=== PATIENT | female | born 1970 | race Caucasian/White ===

== ENCOUNTER 2020-06-05 10:24 | Outpatient (REF) | payer OTHER, SELFPAY ==
--- NOTE | 2020-06-05 10:39 | ECG_ITS ---
Test Reason : SCREENING Blood Pressure : / mmHG Vent. Rate : 059 BPM Atrial Rate : 059 BPM P-R Int : 142 ms QRS Dur : 084 ms QT Int : 440 ms P-R-T Axes : 009 021 026 degrees QTc Int : 435 ms Sinus bradycardia Otherwise normal ECG When compared with ECG of 03-DEC-2015 08:28, No significant change was found Referred By: Burak Daigle Electronically Signed By:PRISCA MERCADO
[2020-06-05 11:00] LABS: MANUAL DIFF FLAG NO
[2020-06-05 11:36] LABS: Basophils Percent Auto 0.5 % (0-2); Eosinophils Absolute Auto 0.2 X10*3/uL (0.0-0.4); Eosinophils Percent Auto 3.4 % (0-4); Hematocrit 43.9 % (37-47); Hemoglobin 14.1 g/dl (12.0-16.0); Imm Gran Abs Auto 0.01 X10*3/uL (0.00-0.03); Imm Gran Pct Auto 0.2 % (0.0-0.4); Lymphocytes Percent Auto 34.5 % (20-40); Mean Corpuscular HGB Conc 32.1 g/dl (31.0-35.0); Mean Corpuscular Volume 87.3 fL (80-98); Mean Platelet Volume 10.4 fL (9.4-12.3); Monocytes Absolute Auto 0.4 X10*3/uL (0.1-1.2); Monocytes Percent Auto 7.8 % (2-11); Neutrophils Percent Auto 53.6 % (45-73); Platelet Count 291 X10*3/uL (160-400); Red Blood Count 5.03 X10*6/uL (4.20-5.50); White Blood Count 5.7 X10*3/uL (4.8-10.8)
[2020-06-05 11:49] LABS: Alanine Aminotransferase 32 U/L (0-31); Albumin Level 4.3 g/dL (3.5-5.0); Alkaline Phosphatase 59 U/L (39-117); Anion Gap 13 (12-20); Aspartate Amino Transferase 21 U/L (5-31); Bilirubin Total 0.6 mg/dL (0.0-1.0); Blood Urea Nitrogen 10 mg/dL (9-16); Calcium 8.9 mg/dL (8.4-10.2); Carbon Dioxide 25 mmol/L (22-29); Chloride 105 mmol/L (96-108); Cholesterol 206 mg/dL; Estimated Glomerular Filt Rate > 60; Glucose Fasting 85 mg/dL (60-99); HDL Cholesterol 49 mg/dL; LDL Cholesterol Calculated 121 mg/dl; Potassium 4.6 mmol/L (3.3-5.1); Sodium 138 mmol/L (135-145); Total Protein 6.9 g/dL (6.5-8.0); Triglycerides 182 mg/dL
[2020-06-05 12:01] LABS: Thyroid Stimulating Hormone 1.27 uIU/mL (0.32-4.0)
== END 2020-06-05 10:25 | disposition home or self-care (01) ==
LOC: HO.LAB 10:24
PROVIDERS: PCP Internal Medicine; Visit Provider Internal Medicine
DX: Z00.00 Encounter for general adult medical examination without abnormal findings (principal); Z13.9 Encounter for screening, unspecified; E11.9 Type 2 diabetes mellitus without complications; E03.9 Hypothyroidism, unspecified
CPT/HCPCS: 36415; 80053; 80061; 84443; 85025; 93005

== ENCOUNTER 2021-05-22 09:04 | Outpatient (REF) | payer OTHER, SELFPAY ==
[2021-05-22 09:38] LABS: MANUAL DIFF FLAG NO
[2021-05-22 09:51] LABS: Basophils Percent Auto 0.2 % (0-2); Eosinophils Absolute Auto 0.2 X10*3/uL (0.0-0.4); Eosinophils Percent Auto 4.6 % (0-4); Hemoglobin 13.7 g/dl (12.0-16.0); Imm Gran Abs Auto 0.03 X10*3/uL (0.00-0.03); Imm Gran Pct Auto 0.6 % (0.0-0.4); Lymphocytes Absolute Auto 2.2 X10*3/uL (1.2-4.9); Lymphocytes Percent Auto 42.2 % (20-40); Mean Corpuscular HGB Conc 32.6 g/dl (31.0-35.0); Mean Corpuscular Hemoglobin 28.3 pg (27.0-33.0); Mean Corpuscular Volume 86.8 fL (80.0-98.0); Mean Platelet Volume 10.3 fL (9.4-12.3); Monocytes Absolute Auto 0.3 X10*3/uL (0.1-1.2); Monocytes Percent Auto 6.5 % (2-11); Neutrophils Absolute Auto 2.4 x10*3/uL (2.0-8.3); Neutrophils Percent Auto 45.9 % (45-73); Platelet Count 302 X10*3/uL (160-400); Red Blood Count 4.84 X10*6/uL (4.20-5.50); Red Cell Distribution Width 12.7 % (11.0-16.0); White Blood Count 5.2 X10*3/uL (4.8-10.8)
[2021-05-22 10:30] LABS: Alanine Aminotransferase 31 U/L (0-31); Albumin Level 4.3 g/dL (3.5-5.0); Alkaline Phosphatase 62 U/L (39-117); Anion Gap 10 (12-20); Aspartate Amino Transferase 20 U/L (5-31); Bilirubin Total 0.7 mg/dL (0.0-1.0); Blood Urea Nitrogen 13 mg/dL (9-16); Calcium 9.7 mg/dL (8.4-10.2); Carbon Dioxide 29 mmol/L (22-29); Chloride 105 mmol/L (96-108); Cholesterol 214 mg/dL; Estimated Glomerular Filt Rate > 60; Glucose Fasting 103 mg/dL (60-99); HDL Cholesterol 37 mg/dL; LDL Cholesterol Calculated 155 mg/dl; Potassium 4.4 mmol/L (3.3-5.1); Sodium 140 mmol/L (135-145); Total Protein 6.9 g/dL (6.5-8.0); Triglycerides 110 mg/dL
[2021-05-22 10:52] LABS: Thyroid Stimulating Hormone 1.62 uIU/mL (0.32-4.0)
== END 2021-05-22 09:05 | disposition home or self-care (01) ==
LOC: HO.LAB 09:04
PROVIDERS: PCP Internal Medicine; Visit Provider Internal Medicine
DX: Z00.00 Encounter for general adult medical examination without abnormal findings (principal); Z13.0 Encounter for screening for diseases of the blood and blood-forming organs and certain disorders involving the immune mechanism
CPT/HCPCS: 36415; 80053; 80061; 84443; 85025

== ENCOUNTER 2021-06-25 21:24 | Emergency (ER) | payer OTHER, SELFPAY ==
[2021-06-25 21:32] VITALS: BP 136/83; PULSE 67; RESP 18; TEMP 36.4; O2SAT 99; BMI 27.3
[2021-06-25 21:46] LABS: Basophils Percent Auto 0.3 % (0-2); Eosinophils Absolute Auto 0.3 X10*3/uL (0.0-0.4); Eosinophils Percent Auto 3.7 % (0-4); Hemoglobin 13.9 g/dl (12.0-16.0); Imm Gran Abs Auto 0.02 X10*3/uL (0.00-0.03); Imm Gran Pct Auto 0.3 % (0.0-0.4); Lymphocytes Absolute Auto 2.5 X10*3/uL (1.2-4.9); Lymphocytes Percent Auto 37.1 % (20-40); MANUAL DIFF FLAG NO; Mean Corpuscular HGB Conc 33.1 g/dl (31.0-35.0); Mean Corpuscular Hemoglobin 28.3 pg (27.0-33.0); Mean Corpuscular Volume 85.5 fL (80.0-98.0); Mean Platelet Volume 9.8 fL (9.4-12.3); Monocytes Absolute Auto 0.5 X10*3/uL (0.1-1.2); Monocytes Percent Auto 7.6 % (2-11); Neutrophils Absolute Auto 3.5 x10*3/uL (2.0-8.3); Platelet Count 297 X10*3/uL (160-400); Red Blood Count 4.91 X10*6/uL (4.20-5.50); Red Cell Distribution Width 12.9 % (11.0-16.0); White Blood Count 6.8 X10*3/uL (4.8-10.8)
[2021-06-25 22:01] LABS: Anion Gap 12 (12-20); Blood Urea Nitrogen 16 mg/dL (9-16); Calcium 9.6 mg/dL (8.4-10.2); Carbon Dioxide 28 mmol/L (22-29); Chloride 105 mmol/L (96-108); Creatinine Clr Calc Pharmacy 94.8; Estimated Glomerular Filt Rate > 60; Glucose Random 108 mg/dL (60-115); Potassium 3.9 mmol/L (3.3-5.1); Sodium 141 mmol/L (135-145)
[2021-06-26 07:10] LABS: Estimated Average Glucose 105 mg/dL; Hemoglobin A1c % 5.3 %
== END 2021-06-25 22:49 | disposition left against medical advice (07) ==
PROVIDERS: Emergency Provider Emergency Medicine; PCP Internal Medicine
DX: I10 Essential (primary) hypertension (principal); M79.10 Myalgia, unspecified site; Z79.899 Other long term (current) drug therapy
CPT/HCPCS: 36415; 80048; 83036; 85025; 99282; 99283

== ENCOUNTER 2021-07-08 07:38 | Outpatient (REF) | payer OTHER, SELFPAY ==
[2021-07-08 08:01] LABS: MANUAL DIFF FLAG NO
[2021-07-08 08:03] LABS: Basophils Percent Auto 0.5 % (0-2); Eosinophils Absolute Auto 0.2 X10*3/uL (0.0-0.4); Eosinophils Percent Auto 4.4 % (0-4); Hematocrit 42.1 % (37.0-47.0); Hemoglobin 14.2 g/dl (12.0-16.0); Imm Gran Abs Auto 0.02 X10*3/uL (0.00-0.03); Imm Gran Pct Auto 0.4 % (0.0-0.4); Lymphocytes Absolute Auto 2.3 X10*3/uL (1.2-4.9); Lymphocytes Percent Auto 41.7 % (20-40); Mean Corpuscular HGB Conc 33.7 g/dl (31.0-35.0); Mean Corpuscular Hemoglobin 28.5 pg (27.0-33.0); Mean Corpuscular Volume 84.5 fL (80.0-98.0); Mean Platelet Volume 10.5 fL (9.4-12.3); Monocytes Absolute Auto 0.4 X10*3/uL (0.1-1.2); Neutrophils Absolute Auto 2.5 x10*3/uL (2.0-8.3); Platelet Count 244 X10*3/uL (160-400); Red Blood Count 4.98 X10*6/uL (4.20-5.50); Red Cell Distribution Width 12.5 % (11.0-16.0); White Blood Count 5.5 X10*3/uL (4.8-10.8)
[2021-07-08 08:33] LABS: Alanine Aminotransferase 35 U/L (0-31); Albumin Level 4.4 g/dL (3.5-5.0); Alkaline Phosphatase 63 U/L (39-117); Anion Gap 13 (12-20); Aspartate Amino Transferase 22 U/L (5-31); Bilirubin Total 0.8 mg/dL (0.0-1.0); Blood Urea Nitrogen 14 mg/dL (9-16); Carbon Dioxide 31 mmol/L (22-29); Chloride 100 mmol/L (96-108); Cholesterol 160 mg/dL; Estimated Glomerular Filt Rate > 60; Glucose Fasting 112 mg/dL (60-99); HDL Cholesterol 40 mg/dL; LDL Cholesterol Calculated 90 mg/dl; Sodium 140 mmol/L (135-145); Total Protein 7.2 g/dL (6.5-8.0); Triglycerides 151 mg/dL
[2021-07-08 08:38] LABS: Erythrocyte Sedimentation Rate 6 MM/HR (0-20)
[2021-07-08 08:54] LABS: TSH reflex Free T4 1.61 uIU/mL (0.32-4.0)
[2021-07-08 09:38] LABS: Vitamin B12 298 pg/mL (200-900)
[2021-07-11 16:54] LABS: Vitamin D 25-OH, D2 <4 ng/mL; Vitamin D 25-OH, D3 33 ng/mL; Vitamin D 25-OH, Total 33 ng/mL (30-100)
== END 2021-07-08 07:39 | disposition home or self-care (01) ==
LOC: HO.LAB 07:38
PROVIDERS: PCP Nurse Practitioner Acute Care; Visit Provider Nurse Practitioner Acute Care
DX: E78.5 Hyperlipidemia, unspecified (principal); I10 Essential (primary) hypertension; M25.50 Pain in unspecified joint
CPT/HCPCS: 36415; 80053; 80061; 82306; 82607; 82746; 84443; 85025; 85652; 86140

== ENCOUNTER 2021-07-10 21:32 | Emergency (ER) | payer OTHER, SELFPAY ==
--- NOTE | 2021-07-10 | ECG_ITS ---
Test Reason : CHEST PAIN Blood Pressure : / mmHG Vent. Rate : 069 BPM Atrial Rate : 069 BPM P-R Int : 120 ms QRS Dur : 086 ms QT Int : 404 ms P-R-T Axes : 052 034 043 degrees QTc Int : 432 ms Normal sinus rhythm Cannot rule out Anterior infarct , age undetermined - could be related to body habitus and lead placement Abnormal ECG When compared with ECG of 05-JUN-2020 10:47, No significant change was found Referred By: Generic ED Physician Electronically Signed By:PRISCA MERCADO
--- NOTE | ~2021-07-10 | XR_ITS ---
EXAMINATION: XR CHEST CLINICAL INFORMATION: Chest pain COMPARISON: 08/21/2016 TECHNIQUE: Frontal view of the chest was obtained. FINDINGS: The lungs are well expanded. There is no focal consolidation, edema, or effusion. No pneumothorax. The cardiomediastinal silhouette is within normal limits. No acute osseous abnormality. XR/XR chest 1V IMPRESSION: Clear lungs.
[2021-07-10 21:34] VITALS: BP 135/80; PULSE 70; RESP 18; TEMP 36.6; O2SAT 98; BMI 28.7
[2021-07-10 22:16] LABS: MANUAL DIFF FLAG NO
[2021-07-10 22:18] LABS: Basophils Percent Auto 0.4 % (0-2); Eosinophils Absolute Auto 0.3 X10*3/uL (0.0-0.4); Eosinophils Percent Auto 3.9 % (0-4); Hematocrit 41.1 % (37.0-47.0); Hemoglobin 13.7 g/dl (12.0-16.0); Imm Gran Abs Auto 0.03 X10*3/uL (0.00-0.03); Imm Gran Pct Auto 0.4 % (0.0-0.4); Lymphocytes Absolute Auto 3.1 X10*3/uL (1.2-4.9); Lymphocytes Percent Auto 43.8 % (20-40); Mean Corpuscular HGB Conc 33.3 g/dl (31.0-35.0); Mean Corpuscular Volume 83.9 fL (80.0-98.0); Mean Platelet Volume 10.6 fL (9.4-12.3); Monocytes Absolute Auto 0.5 X10*3/uL (0.1-1.2); Neutrophils Absolute Auto 3.2 x10*3/uL (2.0-8.3); Neutrophils Percent Auto 44.5 % (45-73); Platelet Count 251 X10*3/uL (160-400); Red Cell Distribution Width 12.3 % (11.0-16.0); White Blood Count 7.1 X10*3/uL (4.8-10.8)
[2021-07-10 22:33] LABS: Alanine Aminotransferase 37 U/L (0-31); Albumin Level 4.5 g/dL (3.5-5.0); Alkaline Phosphatase 65 U/L (39-117); Anion Gap 14 (12-20); Aspartate Amino Transferase 21 U/L (5-31); Bilirubin Total 0.8 mg/dL (0.0-1.0); Blood Urea Nitrogen 14 mg/dL (9-16); Calcium 9.9 mg/dL (8.4-10.2); Carbon Dioxide 27 mmol/L (22-29); Chloride 101 mmol/L (96-108); Creatinine Clr Calc Pharmacy 52.9; Estimated Glomerular Filt Rate 39; Glucose Random 102 mg/dL (60-115); Potassium 3.9 mmol/L (3.3-5.1); Sodium 138 mmol/L (135-145); Total Protein 7.2 g/dL (6.5-8.0)
[2021-07-10 22:39] LABS: Troponin-I High Sensitivity < 3.5 ng/L (<3.5-17.0)
--- NOTE | 2021-07-11 01:35 | ED_ITS ---
HPI - General Adult General Chief complaint: Chest Pain Stated complaint: chest pain/left shoulder pain Time Seen by Provider: 07/11/21 01:31 Source: patient and family (Daughter) Mode of arrival: ambulatory Limitations: no limitations History of Present Illness HPI narrative: 51-year-old female came in for evaluation of multiple complaints. Patient was feeling at her normal health state until 2 months ago when she started to have facial flushing, left arm numbness intermittently, patient recently diagnosed by her PCP with high blood pressure was placed on hydrochlorothiazide 12.5 mg, patient still anxious and concerned about her health specially when she monitor her blood pressure at home sometimes systolic blood pressure read in the 160s, patient declined any chest pain in the last 48 hours. No shortness of breath, no leg swelling or edema. No abdominal pain. No fever, no chills. Related Data Home Medications Medication Instructions Recorded Confirmed multivitamin 1 tab PO DAILY 05/04/20 05/15/21 omega-3 fatty acids 1,000 mg 1,000 mg PO DAILY 05/04/20 05/15/21 capsule (Fish Oil Concentrate) vitamin B complex 1 tab PO DAILY 05/04/20 05/15/21 Previous Rx's Medication Instructions Recorded hydrocortisone 2.5 % topical cream 1 appl NJ BID-QID PRN #30 g 05/15/21 with perineal applicator (Anusol-HC) atorvastatin 10 mg tablet 10 mg PO BEDTIME #30 tab 07/01/21 hydrochlorothiazide 12.5 mg tablet 12.5 mg PO DAILY #30 tab 07/01/21 omeprazole 20 mg capsule,delayed 20 mg PO DAILY #30 cap 07/01/21 release Allergies Allergy/AdvReac Type Severity Reaction Status Date / Time No Known Allergies Allergy Mild NONE Verified 07/01/21 08:46 Review of Systems Review of Systems: All other systems are reviewed and are negative Constitutional: Reports as per HPI and Reports no additional constitutional complaints Eyes: Reports as per HPI and Reports no additional eye complaints Reports system reviewed and no additional complaints, except as documented Cardiovascular: Reports as per HPI and Reports no additional cardiovascular complaints Respiratory: Reports as per HPI and Reports no additional respiratory complaints Gastrointestinal: Reports as per HPI and Reports no additional gastrointestinal complaints Genitourinary: Reports no additional female genitourinary complaints Musculoskeletal: Reports no additional musculoskeletal complaints Skin/Breast: Reports system reviewed and no additional complaints, except as docu Psychiatric: Reports no additional psychiatric complaints Endocrine: Reports no additional endocrine complaints Hematologic/Lymphatic: Reports no additional hematologic/lymphatic complaints Allergic/Immunologic: Reports no additional allergic/immunologic complaints Reports system reviewed and no additional complaints, except as documented and Reports Abnormal speech present FORMERLY [facility] Past Medical History Surgical History History of tubal ligation Family History Family History Father Cancer Mother Diabetes Heart problem Social History [facility] Alcohol intake: never Patient Tobacco Use Status: Never used Tobacco e-Cigarette/Vaping Use: Never Used Second Hand Smoke Exposure: No Advance Directives: No service: No Current occupational status: employed Cognitive needs: No Hearing needs: No Vision needs: Yes Physical Exam ED Vital Signs: Vital Signs - 24 hr 07/10/21 21:34 Temperature 97.9 F Pulse Rate 70 Respiratory Rate 18 Blood Pressure 135/80 Pulse Oximetry 98 BMI result Body Mass Index 28.7 Vital signs have been reviewed as appeared to be correct. Blood pressure normal. Heart rate normal. Respiration rate normal. Temperature normal. Oxygen saturation normal. Appearance: Alert. Oriented X3. No acute distress. Appear anxious Head: Normal external exam. Normocephalic. Atraumatic. No Wood signs noted. No raccoon eyes noted Eyes: PERRLA. EOMI. Conjunctiva and sclera normal. Eyelids normal. ENT: TM's Normal. Pharynx normal. Uvula midline. Moist mucous membranes. No trismus noted. No drooling noted. No muffled voice noted. Neck: Normal inspection. Neck supple. FROM. No adenopathy. Thyroid Normal. No meningeal signs. No neck mass noted. CVS: Normal heart rate and rhythm. Heart sound normal. No murmurs noted. Pulses normal throughout. Respiratory: No respiratory distress. Painless inspiration. Breath sounds normal. No wheezes/rales/rhonchi noted. Chest nontender. No accessory muscle usage noted or decreased air movement noted. Abdomen: Soft and nontender. Bowel sounds normal in all 4 quadrants. No distention noted. No organomegaly noted. No visible injury noted. Back: No CVA tenderness. Full range of motion noted. Skin: Skin warm and dry. Normal skin color. Normal skin turgor. No rashes/lesions/lacerations noted. Extremities: No lower extremity edema. Extremities exhibit normal range of motion. Extremities nontender. Neuro: Oriented X 3. Cranial nerve exam: II-XII are grossly intact No motor deficit. No sensory deficit. Reflexes normal. Course Course Course Narrative: Assessment and plan. 51-year-old female recently diagnosed with high blood pressure by her PCP placed on HCTZ 12.5 mg daily, came in complaining of facial flushing and left shoulder numbness intermittently, patient declined any chest pain in the last 48 hours, no shortness of breath, blood pressure in the emergency department ranging between 135/80 to 110/64, unremarkable labs. Medical Decision Making Lab Data Lab results reviewed: Yes I reviewed the patient's lab results. Result diagrams: 07/10/21 22:08 07/10/21 22:08 Labs: Lab Results 07/10/21 07/10/21 07/10/21 Range/Units 22:08 22:08 22:08 WBC 7.1 (4.8-10.8) X10*3/uL RBC 4.90 (4.20-5.50) X10*6/uL Hgb 13.7 (12.0-16.0) g/dl Hct 41.1 (37.0-47.0) % MCV 83.9 (80.0-98.0) fL MCH 28.0 (27.0-33.0) pg MCHC 33.3 (31.0-35.0) g/dl RDW 12.3 (11.0-16.0) % Plt Count 251 (160-400) X10*3/uL MPV 10.6 (9.4-12.3) fL Immature Gran % (Auto) 0.4 (0.0-0.4) % Neut % (Auto) 44.5 L (45-73) % Lymph % (Auto) 43.8 H (20-40) % Callaway % (Auto) 7.0 (2-11) % Eos % (Auto) 3.9 (0-4) % Baso % (Auto) 0.4 (0-2) % Lymph # (Auto) 3.1 (1.2-4.9) X10*3/uL Callaway # (Auto) 0.5 (0.1-1.2) X10*3/uL Eos # (Auto) 0.3 (0.0-0.4) X10*3/uL Baso # (Auto) 0.0 (0.0-0.2) X10*3/uL Abs Immat Gran (auto) 0.03 (0.00-0.03) X10*3/uL Absolute Neuts (auto) 3.2 (2.0-8.3) x10*3/uL Absolute Nucleated RBC 0.000 (0.0-0.012) X10*3/uL Nucleated RBC % (auto) 0.0 (0.0-0.2) /100WBC Sodium 138 (135-145) mmol/L Potassium 3.9 (3.3-5.1) mmol/L Chloride 101 (96-108) mmol/L Carbon Dioxide 27 (22-29) mmol/L Anion Gap 14 (12-20) BUN 14 (9-16) mg/dL Creatinine 1.41 H (0.5-1.4) mg/dL Estim Creat Clear Calc 52.9 Estimated GFR 39 Random Glucose 102 (60-115) mg/dL Calcium 9.9 (8.4-10.2) mg/dL Total Bilirubin 0.8 (0.0-1.0) mg/dL AST 21 (5-31) U/L ALT 37 H (0-31) U/L Alkaline Phosphatase 65 (39-117) U/L Troponin I High Sens < 3.5 (<3.5-17.0) ng/L Total Protein 7.2 (6.5-8.0) g/dL Albumin 4.5 (3.5-5.0) g/dL Imaging Data Chest x-ray: Attestation: I personally reviewed and interpreted this imaging study as follows: Radiologist's impression: Unremarkable exam. ECG Data Attestation: I personally reviewed and interpreted this ECG as follows: Interpretation: Normal sinus rhythm at 69 beats per minutes, min axis deviation, normal intervals. No ST-T changes. Discharge Plan Discharge Clinical Impression: Anxiety, Hypertension Patient Disposition: Home, Self-Care Instructions: Hypertension (ED) Prescriptions: No Action multivitamin Tablet 1 tab PO DAILY 0RF omega-3 fatty acids [Fish Oil Concentrate] 1,000 mg capsule 1,000 mg PO DAILY 0RF vitamin B complex Tablet 1 tab PO DAILY 0RF hydrochlorothiazide 12.5 mg tablet 12.5 mg PO DAILY Qty: 30 1RF atorvastatin 10 mg tablet 10 mg PO BEDTIME Qty: 30 3RF omeprazole 20 mg capsule,delayed release(DR/EC) 20 mg PO DAILY Qty: 30 1RF hydrocortisone [Anusol-HC] 2.5 % cream with perineal applicator 1 appl NJ BID-QID PRN (Reason: hemorrhoids) Qty: 30 2RF Referrals: Burak Daigle MD [Primary Care Provider] -
== END 2021-07-11 01:58 | disposition home or self-care (01) ==
PROVIDERS: Emergency Provider Emergency Medicine; PCP Internal Medicine
DX: R07.89 Other chest pain (principal); R20.0 Anesthesia of skin; F41.1 Generalized anxiety disorder; F43.0 Acute stress reaction; I10 Essential (primary) hypertension; Z79.899 Other long term (current) drug therapy
CPT/HCPCS: 36415; 71045; 80053; 84484; 85025; 93005; 99282; 99283

== ENCOUNTER → 2021-11-26 12:53 | Outpatient (BNVA) | payer OTHER, SELFPAY | PROVIDERS: PCP Internal Medicine; Visit Provider Student in an Organized Health Care Education/Training Program | DX: M79.7 Fibromyalgia (principal); R79.89 Other specified abnormal findings of blood chemistry; M25.50 Pain in unspecified joint | CPT/HCPCS: 99202 ==

== ENCOUNTER 2022-01-10 10:34 | Outpatient (REF) | payer OTHER, SELFPAY ==
[2022-01-10 10:48] LABS: MANUAL DIFF FLAG NO
[2022-01-10 11:58] LABS: Basophils Percent Auto 0.4 % (0-2); Eosinophils Absolute Auto 0.2 X10*3/uL (0.0-0.4); Eosinophils Percent Auto 3.5 % (0-4); Hematocrit 44.9 % (37.0-47.0); Hemoglobin 14.6 g/dl (12.0-16.0); Imm Gran Abs Auto 0.02 X10*3/uL (0.00-0.03); Imm Gran Pct Auto 0.3 % (0.0-0.4); Lymphocytes Absolute Auto 2.5 X10*3/uL (1.2-4.9); Mean Corpuscular HGB Conc 32.5 g/dl (31.0-35.0); Mean Corpuscular Hemoglobin 27.3 pg (27.0-33.0); Mean Corpuscular Volume 83.9 fL (80.0-98.0); Mean Platelet Volume 10.4 fL (9.4-12.3); Monocytes Absolute Auto 0.5 X10*3/uL (0.1-1.2); Monocytes Percent Auto 6.8 % (2-11); Neutrophils Absolute Auto 3.7 x10*3/uL (2.0-8.3); Platelet Count 250 X10*3/uL (160-400); Red Blood Count 5.35 X10*6/uL (4.20-5.50); White Blood Count 6.9 X10*3/uL (4.8-10.8)
[2022-01-10 12:42] LABS: Erythrocyte Sedimentation Rate 7 MM/HR (0-20)
[2022-01-10 12:52] LABS: Alanine Aminotransferase 40 U/L (0-31); Alkaline Phosphatase 78 U/L (39-117); Anion Gap 17 (12-20); Aspartate Amino Transferase 24 U/L (5-31); Blood Urea Nitrogen 15 mg/dL (9-16); C Reactive Protein 0.18 mg/dL (< or = 0.50); Calcium 9.5 mg/dL (8.4-10.2); Carbon Dioxide 29 mmol/L (22-29); Chloride 102 mmol/L (96-108); Estimated Glomerular Filt Rate > 60; Glucose Random 94 mg/dL (60-115); Potassium 4.6 mmol/L (3.3-5.1); Sodium 143 mmol/L (135-145)
[2022-01-10 14:00] LABS: Albumin Level 4.5 g/dL (3.5-5.0)
[2022-01-13 09:47] LABS: Anti Nuclear Antibody Screen NEGATIVE (NEGATIVE)
== END 2022-01-10 10:35 | disposition home or self-care (01) ==
LOC: HO.LAB 10:34
PROVIDERS: PCP Internal Medicine; Visit Provider Student in an Organized Health Care Education/Training Program
DX: R79.89 Other specified abnormal findings of blood chemistry (principal); M25.50 Pain in unspecified joint
CPT/HCPCS: 36415; 80053; 82550; 85025; 85652; 86038; 86039; 86140

== ENCOUNTER → 2022-03-18 10:28 | Outpatient (BNVA) | payer OTHER, SELFPAY | PROVIDERS: PCP Internal Medicine; Visit Provider Student in an Organized Health Care Education/Training Program | DX: M79.7 Fibromyalgia (principal); R79.89 Other specified abnormal findings of blood chemistry; Z79.899 Other long term (current) drug therapy | CPT/HCPCS: 99212 ==

== ENCOUNTER 2022-06-06 14:42 | Outpatient (REF) | payer OTHER, SELFPAY ==
[2022-06-06 16:33] LABS: Prothrombin Time 10.9 SEC (10.0-13.1)
[2022-06-06 16:40] LABS: Estimated Average Glucose 111 mg/dL; Hemoglobin A1c % 5.5 %
[2022-06-06 17:14] LABS: Alanine Aminotransferase 30 U/L (0-31); Albumin Level 4.4 g/dL (3.5-5.0); Alkaline Phosphatase 86 U/L (39-117); Aspartate Amino Transferase 28 U/L (5-31); Bilirubin Direct 0.1 mg/dL (0.0-0.5); Bilirubin Total 0.6 mg/dL (0.0-1.0); Cholesterol 246 mg/dL; Gamma Glutamyl Transpeptidase 36 U/L (7-33); HDL Cholesterol 39 mg/dL; Iron 65 mcg/dL (30-160); Percent Iron Saturation 22 % (15-50); Total Iron Binding Capacity 292 mcg/dL (228-428); Triglycerides 458 mg/dL; Unsaturated Iron Binding 227 ug/dL
[2022-06-06 17:28] LABS: Ferritin 77 ng/mL (10-250)
[2022-06-09 08:51] LABS: HBS Num1 166.72 mIU/mL (0-7.99); HBc Num1 0.66 S/CO (0.00-0.79); HBsAGNum1 0.32 S/CO (0.00-0.99); Hepatitis B Core Antibody Nonreactive (Nonreactive); Hepatitis B Surface Antigen Negative (Negative); ~HepC Num1 0.21 S/CO (0.00-0.79); ~Hepatitis B Surface Antibody REACTIVE (Nonreactive); ~Hepatitis C Antibody Nonreactive (Nonreactive)
[2022-06-09 08:53] LABS: Hepatitis A Antibody IgG REACTIVE (Nonreactive); ~Hepatitis A Antibody IgG 10.83 S/CO (0.00-0.99)
[2022-06-09 12:43] LABS: Immunoglobulin A 136 mg/dL (47-310); Immunoglobulin G 975 mg/dL (600-1640)
[2022-06-09 14:44] LABS: Transglutaminase IgA <1.0 U/mL
[2022-06-10 23:34] LABS: Smooth Muscle Antibody <20 U (<20)
[2022-06-11 13:39] LABS: Anti Nuclear Antibody Screen NEGATIVE (NEGATIVE)
[2022-06-12 22:24] LABS: Liver Kidney Microsomal Ab <=20.0 U (<=20.0)
== END 2022-06-06 14:43 | disposition home or self-care (01) ==
LOC: HO.LAB 14:42
PROVIDERS: PCP Internal Medicine; Visit Provider Internal Medicine
DX: R79.89 Other specified abnormal findings of blood chemistry (principal); N93.9 Abnormal uterine and vaginal bleeding, unspecified; E78.5 Hyperlipidemia, unspecified
CPT/HCPCS: 36415; 80061; 80076; 82728; 82784; 82977; 83036; 83540; 85610; 86015; 86038; 86039; 86364; 86376; 86704; 86706; 86708; 86803; 87340; 99202

== ENCOUNTER 2022-06-24 09:06 | Outpatient (REF) | payer OTHER, SELFPAY ==
--- NOTE | ~2022-06-24 | US_ITS ---
EXAMINATION: US ABDOMEN COMPLETE CLINICAL INFORMATION: Other specified abnormal findings of blood chemistry. COMPARISON: Ultrasound abdomen complete 01/05/2018 and 01/10/2016. CT abdomen and pelvis without contrast 05/14/2015. TECHNIQUE: Real-time imaging of the abdominal viscera. FINDINGS: PANCREAS: Normal. ABDOMINAL AORTA: The proximal, mid, and distal segments are normal in caliber. INFERIOR VENA CAVA: Visualized portions are normal. LIVER: The liver is normal in size. The liver contour is normal. There is diffuse increased liver parenchymal echogenicity, consistent with hepatic steatosis, with focal fatty sparing. No focal hepatic lesion. There is no intrahepatic biliary duct dilatation seen. GALLBLADDER: Normal. The gallbladder is physiologically distended without evidence of stones, sludge, polyps, wall thickening or pericholecystic fluid. COMMON BILE DUCT: Normal in caliber measuring 0.5 cm in diameter. RIGHT KIDNEY: Benign-appearing 5 mm simple cyst, no follow-up imaging recommended. Right renal pelviectasis. No bernabe hydronephrosis or renal calculi. The kidney measures 11.4 cm in maximum dimension. 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 No hydronephrosis. No renal calculi or focal parenchymal lesions. The kidney measures 11.0 cm in maximum dimension. SPLEEN: Normal. The spleen measures 10.9 cm in maximum dimension. FREE FLUID: None. US/US abdomen complete IMPRESSION: 1. Hepatic steatosis. 2. Right renal pelviectasis without bernabe hydronephrosis. No nephrolithiasis. 3. 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
== END 2022-06-24 09:07 | disposition home or self-care (01) ==
LOC: HO.US 09:06
PROVIDERS: PCP Internal Medicine; Visit Provider Internal Medicine
DX: R79.89 Other specified abnormal findings of blood chemistry (principal)
CPT/HCPCS: 76700

== ENCOUNTER → 2022-08-06 14:31 | Outpatient (BNVA) | payer OTHER, SELFPAY | PROVIDERS: PCP Internal Medicine; Visit Provider Internal Medicine | DX: R79.89 Other specified abnormal findings of blood chemistry (principal); E78.00 Pure hypercholesterolemia, unspecified; E78.1 Pure hyperglyceridemia | CPT/HCPCS: 99212 ==

== ENCOUNTER 2022-10-28 11:30 | Outpatient (AMB) | payer OTHER, SELFPAY ==
[2022-10-28 11:32] VITALS: BP 116/64; PULSE 94; TEMP 36.6; O2SAT 97; BMI 29.8
--- NOTE | 2022-10-28 11:32 | A.OFFVIS_ITS ---
Intake Vital Signs 10/28/22 11:32 Height 5 ft 7 in Weight 190 lb 0.615 oz BMI 29.8 BP 116/64 Blood Pressure Location Rt brachial Position Sitting Pulse 94 Pulse Source Pulse Oximeter Temp 97.9 F Temp Source Skin Pulse Oximetry (%) 97 Intake Visit Reasons: FMS Intake Note: Pt seen today for FM follow up. Denies new or increased pain. 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 On duloxetine 60 mg nightly. Doing well overall. States that since starting duloxetine her overall pain level is 60% improved. She was evaluated by Gastroenterology for transaminitis and started taking vitamin E. states that she walks 4 miles a day but continues to gain weight. Initial history: This is a 51-year-old female with a past medical history of anxiety, hypertension, dyslipidemia who presents for evaluation of diffuse pain. The condition started many years ago with diffuse body pain especially shoulders, arms, forearms, thighs, hips. She has bilateral arm heaviness . Patient cannot tell what makes her pain better or worse. Patient is able to walk 4-5 miles a day. Minimal knee pain with activity and occasional swelling. A few weeks ago she had swollen left medial epicondyle area, she applied honey with Cabbage with some relief. Patient sometimes sleeps as little as 4 hours sometimes 6, she wakes up early due to anxiety and worrying about multiple things. 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 Cognitive needs: No Hearing needs: No Vision needs: Yes Review of Systems Musc Denies arthralgias Physical Exam Vital Signs: Last Vital Signs Temp 97.9 F 10/28/22 11:32 Pulse 94 10/28/22 11:32 BP 116/64 10/28/22 11:32 Pulse Ox 97 10/28/22 11:32 BMI result Body Mass Index 29.8 Const General: cooperative, healthy appearing, comfortable, no acute distress and well developed Nutritional Appearance: overweight Limitations: no limitations HEENT Head: Yes normocephalic and Yes atraumatic Resp Effort & Inspection: normal respiratory effort and able to speak in complete sentences Extrem Other: No synovitis No fibromyalgia tender points today Assessment & Plan Assessment & Plan (1) Fibromyalgia, primary: Code(s): M79.7 - Fibromyalgia Plan: This is a 52-year-old female with fibromyalgia presents for follow-up. On duloxetine 60 mg daily. Patient states 60% improvement in her overall pain since starting duloxetine. Continue duloxetine 60 mg day Follow-up in 6 months (2) Elevated LFTs: Code(s): R79.89 - Other specified abnormal findings of blood chemistry Plan: Was evaluated by Gastroenterology and started on vitamin E trial (3) Hypertriglyceridemia: Code(s): E78.1 - Pure hyperglyceridemia Plan: Advised patient to follow-up with her PCP as she might need treatment for hypertriglyceridemia Plan I spent 26 minutes reviewing patient's chart, evaluating patient, counseling patient and documenting in the chart Coding Level of Care Code Est Pt Level 4 (02964) Diagnoses Fibromyalgia, primary M79.7 Elevated LFTs R79.89 Hypertriglyceridemia E78.1
== END 2022-10-28 11:57 | disposition home or self-care (01) ==
PROVIDERS: PCP Internal Medicine; Visit Provider Student in an Organized Health Care Education/Training Program
DX: M79.7 Fibromyalgia (principal); R79.89 Other specified abnormal findings of blood chemistry; E78.1 Pure hyperglyceridemia
CPT/HCPCS: 99214

== ENCOUNTER → 2022-10-28 11:30 | Outpatient (BNVA) | payer OTHER, SELFPAY | PROVIDERS: PCP Internal Medicine; Visit Provider Student in an Organized Health Care Education/Training Program | DX: M79.7 Fibromyalgia (principal); R79.89 Other specified abnormal findings of blood chemistry; E78.1 Pure hyperglyceridemia; Z79.899 Other long term (current) drug therapy | CPT/HCPCS: 99212 ==

== ENCOUNTER 2022-11-04 13:20 | Outpatient (AMB) | payer OTHER, SELFPAY ==
--- NOTE | 2022-11-04 13:31 | A.OFFPC_ITS ---
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 Accompanied by: Self / Same As Patient Allergies No Known Allergies Allergy (Mild, Verified 11/04/22 13:32) NONE Medication List - Last Reconciled 11/04/22 by Burak Daigle MD atorvastatin 10 mg PO BEDTIME duloxetine 60 mg PO DAILY hydrochlorothiazide 12.5 mg PO DAILY multivitamin 1 tab PO DAILY omega-3 fatty acids 1,000 mg PO DAILY omeprazole 20 mg PO DAILY vitamin E (dl, acetate) 360 mg (2 x 180 mg (400 unit)) PO DAILY 3 months Tobacco use date assessed: 03/21/22 Dental Screening Dental Screen Date: 11/04/22 Did you have a dental visit in the last 12 months?: No Did you have a dental problem in the last 6 months where you did not have access to dental care?: No Was dental information given to patient?: Patient has dentist HPI medication HPI Details hyperlip hyperten and possible intestinal worms; reportedly has them PFSH Medical History GERD (gastroesophageal reflux disease) Hyperlipidemia Hypertension Surgical History Hx of colonoscopy History of tubal ligation Family History Father Cancer Mother Diabetes Heart problem Social History Household Members: Spouse Housing: Condominium Alcohol intake: never Patient Tobacco Use Status: Never used Tobacco e-Cigarette/Vaping Use: Never Used Second Hand Smoke Exposure: No service: No Current occupational status: 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 1. Little interest or pleasure in doing things: not at all 2. Feeling down, depressed, or hopeless: not at all 3. Trouble falling or staying asleep, or sleeping too much: not at all 4. Feeling tired or having little energy: not at all 5. Poor appetite or overeating: not at all 6. Feeling bad about yourself - or that you are a failure or have let yourself or your family down: not at all 7. Trouble concentrating on things, such as reading the newspaper or watching television: not at all 8. Moving or speaking so slowly that other people could have noticed. Or the opposite - being so fidgety or restless that you have been moving around a lot more than usual: not at all 9. Thoughts that you would be better off or of hurting yourself in some way: not at all Total score: 0 Depression Screening Interpretation: Negative 13258 - PHQ-9 Billing: Yes Source: Developed by Drs. Mo Barbosa, Francisca Tyler, David Parker and colleagues, with an educational diane from [employer]. Thrive Questionnaire Date Thrive assessed: 03/21/22 AUDIT C Alcohol Use Questionnaire (AUDIT-C) 1. How often do you have a drink containing alcohol?: Never Total Score: 0 Score Reviewed/Action Taken: No [place]-7 AMB Questionnaire [place]-7 Date [place] - 7 assessed: 03/21/22 Source: Developed by Drs. Mo Barbosa, Francisca Tyler, David Parker and colleagues, with an educational diane from [employer]. Review of Systems Const Denies chills, Denies headache(s) and Denies weight loss ENT Denies headache(s) Card Denies chest pain, Denies syncope, Denies irregular heart rhythm and Denies dyspnea Resp Denies chest congestion, Denies cough and Denies dyspnea GI Denies abdominal pain, Denies change in stool character, Denies nausea and Denies vomiting Musc Denies deformity and Denies joint swelling Neuro Denies syncope and Denies headache(s) Physical exam (Primary Care) Vital Signs: Last Vital Signs Pulse 97 11/04/22 13:32 BP 118/70 11/04/22 13:32 Pulse Ox 97 11/04/22 13:32 Oxygen Delivery Method Room Air 11/04/22 13:32 BMI result Body Mass Index 29.6 Tobacco/Smoking Status: Tobacco use Status Tobacco use date assessed 03/21/22 11/04/22 13:36 Patient Tobacco Use Status Never used Tobacco 11/04/22 13:36 e-Cigarette/Vaping Use Never Used 11/04/22 13:36 PHQ-9: PHQ-9 Score PHQ-9: Total score 0 11/04/22 13:36 Depression Screening Interpretation: Negative Thrive Assessment: Date of Thrive Assessment Date Thrive assessed 03/21/22 11/04/22 13:36 Const General: cooperative, comfortable, no acute distress and alert Neck Neck: Yes no lymphadenopathy Thyroid: Thyroid normal Resp Effort & Inspection: normal respiratory effort Auscultation: clear to auscultation bilaterally Percussion: percussion normal Cardio Jugular venous distension: no JVD Palpation: normal PMI Rate: regular rate Rhythm: regular rhythm Heart sounds: S1 normal heart sound present and S2 normal heart sound present GI Inspection: Yes normal to inspection Palpation (GI): No hepatosplenomegaly present Skin General skin exam: no rashes or lesions noted Extrem General: Yes no clubbing, cyanosis or edema Assessment and Plan Assessment & Plan (1) Hyperlipidemia: Code(s): E78.5 - Hyperlipidemia, unspecified Qualifiers: Hyperlipidemia type: pure hypercholesterolemia Qualified Code(s): E78.00 - Pure hypercholesterolemia, unspecified Plan: stable; check labs (2) Hypertension: Code(s): I10 - Essential (primary) hypertension Plan: stable; same rx (3) Pruritus ani: Code(s): L29.0 - Pruritus ani Plan: check stool for parasites Orders: Orders Comprehensive Amber. Panel Fast Today N28.9 - Disorder of kidney and ureter, unspecified Ova and Parasite Today B83.9 - Helminthiasis, unspecified Lipid Panel Today E78.5 - Hyperlipidemia, unspecified Complete Blood Count Auto Diff Today D64.9 - Anemia, unspecified Coding Level of Care Code Est Pt Level 4 (57287) Diagnoses Pure hypercholesterolemia E78.00 Hyperlipidemia type: pure hypercholesterolemia Primary hypertension I10 Pruritus ani L29.0
[2022-11-04 13:32] VITALS: BP 118/70; PULSE 97; O2SAT 97; BMI 29.6
== END 2022-11-04 13:48 | disposition home or self-care (01) ==
PROVIDERS: PCP Internal Medicine; Visit Provider Internal Medicine
DX: E78.00 Pure hypercholesterolemia, unspecified (principal); I10 Essential (primary) hypertension; L29.0 Pruritus ani
CPT/HCPCS: 99214

== ENCOUNTER 2022-12-23 09:44 | Outpatient (REF) | payer OTHER, SELFPAY ==
[2022-12-23 09:58] LABS: MANUAL DIFF FLAG NO
[2022-12-23 10:45] LABS: Basophils Percent Auto 0.4 % (0-2); Eosinophils Absolute Auto 0.2 X10*3/uL (0.0-0.4); Eosinophils Percent Auto 3.6 % (0-4); Hematocrit 43.1 % (37.0-47.0); Hemoglobin 14.2 g/dl (12.0-16.0); Imm Gran Abs Auto 0.01 X10*3/uL (0.00-0.03); Imm Gran Pct Auto 0.2 % (0.0-0.4); Lymphocytes Percent Auto 36.2 % (20-40); Mean Corpuscular HGB Conc 32.9 g/dl (31.0-35.0); Mean Corpuscular Hemoglobin 28.1 pg (27.0-33.0); Mean Corpuscular Volume 85.3 fL (80.0-98.0); Mean Platelet Volume 11.1 fL (9.4-12.3); Monocytes Absolute Auto 0.4 X10*3/uL (0.1-1.2); Monocytes Percent Auto 7.1 % (2-11); Neutrophils Absolute Auto 2.9 x10*3/uL (2.0-8.3); Neutrophils Percent Auto 52.5 % (45-73); Platelet Count 257 X10*3/uL (160-400); Red Blood Count 5.05 X10*6/uL (4.20-5.50); Red Cell Distribution Width 13.2 % (11.0-16.0); White Blood Count 5.5 X10*3/uL (4.8-10.8)
[2022-12-23 11:19] LABS: Alanine Aminotransferase 38 U/L (0-31); Albumin Level 4.4 g/dL (3.5-5.0); Alkaline Phosphatase 68 U/L (39-117); Anion Gap 13 (12-20); Aspartate Amino Transferase 26 U/L (5-31); Bilirubin Total 0.7 mg/dL (0.0-1.0); Blood Urea Nitrogen 16 mg/dL (9-16); Calcium 9.9 mg/dL (8.4-10.2); Carbon Dioxide 27 mmol/L (22-29); Chloride 105 mmol/L (96-108); Cholesterol 198 mg/dL (<200); Estimated Glomerular Filt Rate > 60; Glucose Fasting 103 mg/dL (60-99); HDL Cholesterol 50 mg/dL (>40); LDL Cholesterol Calculated 114 mg/dL (<100); Potassium 4.2 mmol/L (3.3-5.1); Sodium 141 mmol/L (135-145); Total Protein 7.3 g/dL (6.5-8.0); Triglycerides 170 mg/dL (<150)
== END 2022-12-23 09:45 | disposition home or self-care (01) ==
LOC: HO.LAB 09:44
PROVIDERS: PCP Internal Medicine; Visit Provider Internal Medicine
DX: D64.9 Anemia, unspecified (principal); N28.9 Disorder of kidney and ureter, unspecified; E78.5 Hyperlipidemia, unspecified
CPT/HCPCS: 36415; 80053; 80061; 85025

== ENCOUNTER 2023-01-05 09:23 | Outpatient (AMB) | payer OTHER, SELFPAY ==
[2023-01-05 09:35] VITALS: BP 114/71; PULSE 82; BMI 29.9
--- NOTE | 2023-01-05 09:35 | MHC.OFFVIS ---
Intake Vital Signs 01/05/23 09:35 Height 5 ft 7 in Weight 190 lb 14.725 oz BMI 29.9 BP 114/71 Blood Pressure Location Lt brachial Position Sitting Pulse 82 Intake Visit Reasons: 6 month follow up Intake Note: Eryn presents in the office today in follow up of elevated LFTs and labs CC: Pt reports occasional nausea. Denies having any other GI symptoms or concerns today. Glass Crusher Required: No Allergies No Known Allergies Allergy (Mild, Verified 01/05/23 09:38) NONE HPI HPI Comments History of Present Illness Details 51 y.o F with PMH of hypertension, HLD, who is here for elevated LFTs. 06/06/22: Pt has had elevated ALT since 2020 <x2UNL. Currently only complaint is intermittent R sided discomfort and pain in hands. She is concerned as her father had similar sx for months leading to his diagnosis of advanced liver cancer. This was back in [facility], she is not sure if he had underlying cirrhosis. Pt does not drink or smoke. No known fam hx of hepatitis. No hx of blood transfusions. No personal IVDU. Does not take any CAM. Does take advil frequently for pain relief. Of note, on ROS pt also mentioned significant vaginal bleeding x 2 days earlier this week despite being menopausal x 2 years. 08/06/22: No acute issues. Describes intermittent RUQ pain otherwise no other sx. Blood work and US reviewed. Most consistent with fatty liver. Also reviewed lipid profile in detail including high TGs and possibly high LDL. Has been started on omega-3 FA but pt has not been taking her statin. 01/05/23: No acute gastrointestinal issues. Returned from vacation in [place] last week. Overall, has not been able to implement changes discussed during last visit including incorporating exercise, weight loss etc. Does report taking statin and omega-3 FA. Labs reviewed - lipid profile much better, but LDLs still high. FBS noted to be high. Weight unchanged from earlier this year at 190#. Last colo (2017) Dr Lowe - repeat recommended in 7-10 years. 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 Cognitive needs: No Hearing needs: No Vision needs: Yes Review of Systems Const All systems reviewed & are unremarkable except as noted in HPI and below Physical Exam Vital Signs: Last Vital Signs Pulse 82 01/05/23 09:35 BP 114/71 01/05/23 09:35 BMI result Body Mass Index 29.9 Gen appear: NAD HEENT: nonicteric, no cervical lymphadenopathy Chest: CTA CVS: Regular S1/S2 Abd: soft, nontender, nondistended, bowel sounds + Ext: no peripheral edema Neuro: A/Ox3, noted to move all extremities spontaneously Psych: interacting appropriately Assessment & Plan Assessment & Plan (1) Elevated LFTs: Code(s): R79.89 - Other specified abnormal findings of blood chemistry (2) Hyperlipidemia: Code(s): E78.5 - Hyperlipidemia, unspecified Qualifiers: Hyperlipidemia type: pure hypercholesterolemia Qualified Code(s): E78.00 - Pure hypercholesterolemia, unspecified (3) Impaired fasting blood sugar: Code(s): R73.01 - Impaired fasting glucose (4) Encounter for colorectal cancer screening: Code(s): Z12.11 - Encounter for screening for malignant neoplasm of colon; Z12.12 - Encounter for screening for malignant neoplasm of rectum Plan Based on current assessment most likely due to fatty liver. Fib 4 remains low at 0.84 i.e low likelihood of advanced fibrosis and no indication for elastography at this time. Recommendations: - Again reviewed similar recommendations from last visit i.e better control of metabolic factors. - Weight loss of 10% TBW advised over the next 6 months - Avoid etOH - Mod intensity activity of at least 150 mins per week - Continuation of Vit E as per her discretion since validated in pts with biopsy proven LEY - Encouraged to discuss testing for diabetes with her PCP as had impaired fasting glucose on most recent labs - Colorectal cancer screening will be due [id number]. Pt is being discharged to her PCP's care for fatty liver/LEY without advanced fibrosis but encouraged to call our office for any concerns or questions that may arise in future. Follow up PRN Coding Level of Care Code Est Pt Level 4 (49641) Diagnoses Elevated LFTs R79.89 Pure hypercholesterolemia E78.00 Hyperlipidemia type: pure hypercholesterolemia Impaired fasting blood sugar R73.01 Encounter for colorectal cancer screening Z12.11; Z12.12
== END 2023-01-05 10:40 | disposition home or self-care (01) ==
PROVIDERS: PCP Internal Medicine; Visit Provider Internal Medicine
DX: R79.89 Other specified abnormal findings of blood chemistry (principal); E78.00 Pure hypercholesterolemia, unspecified; R73.01 Impaired fasting glucose; Z12.11 Encounter for screening for malignant neoplasm of colon; Z12.12 Encounter for screening for malignant neoplasm of rectum
CPT/HCPCS: 99214

== ENCOUNTER → 2023-01-05 09:23 | Outpatient (BNVA) | payer OTHER, SELFPAY | PROVIDERS: PCP Internal Medicine; Visit Provider Internal Medicine | DX: Z12.11 Encounter for screening for malignant neoplasm of colon (principal); Z12.12 Encounter for screening for malignant neoplasm of rectum; R79.89 Other specified abnormal findings of blood chemistry; E78.00 Pure hypercholesterolemia, unspecified; R73.01 Impaired fasting glucose | CPT/HCPCS: 99212 ==

== ENCOUNTER 2023-01-28 09:30 | Outpatient (AMB) | payer OTHER, SELFPAY ==
[2023-01-28 09:31] VITALS: BP 118/82; PULSE 79; O2SAT 98; BMI 29.1
--- NOTE | 2023-01-28 09:31 | MHC.PC.OV ---
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: Not Required per policy Accompanied by: Self / Same As Patient Allergies No Known Allergies Allergy (Mild, Verified 01/28/23 09:32) NONE Tobacco use date assessed: 03/21/22 Dental Screening Dental Screen Date: 01/28/23 Did you have a dental visit in the last 12 months?: Yes Did you have a dental problem in the last 6 months where you did not have access to dental care?: No Was dental information given to patient?: Patient has dentist HPI Ongoing Cough HPI Details cough for a month PFSH Medical History GERD (gastroesophageal reflux disease) Hyperlipidemia Hypertension Surgical History Hx of colonoscopy History of tubal ligation Family History Father Cancer Mother Diabetes Heart problem Social History Household Members: Spouse Housing: Condominium Alcohol intake: never Patient Tobacco Use Status: Never used Tobacco e-Cigarette/Vaping Use: Never Used Second Hand Smoke Exposure: No service: No Current occupational status: 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 Mo Barbosa, Francisca Tyler, David Parker and colleagues, with an educational diane from [employer]. Review of Systems Const Denies chills, Denies headache(s) and Denies weight loss ENT Denies headache(s) Card Denies chest pain, Denies syncope, Denies irregular heart rhythm and Denies dyspnea Resp Denies chest congestion and Denies dyspnea GI Denies abdominal pain, Denies change in stool character, Denies nausea and Denies vomiting Musc Denies deformity and Denies joint swelling Neuro Denies syncope and Denies headache(s) Physical exam (Primary Care) Vital Signs: Last Vital Signs Pulse 79 01/28/23 09:31 BP 118/82 01/28/23 09:31 Pulse Ox 98 01/28/23 09:31 Oxygen Delivery Method Room Air 01/28/23 09:31 BMI result Body Mass Index 29.1 Tobacco/Smoking Status: Tobacco use Status Tobacco use date assessed 03/21/22 01/28/23 09:32 Patient Tobacco Use Status Never used Tobacco 01/28/23 09:32 e-Cigarette/Vaping Use Never Used 01/28/23 09:32 Thrive Assessment: Date of Thrive Assessment Date Thrive assessed 03/21/22 01/28/23 09:32 Const General: cooperative, comfortable, no acute distress and alert Neck Neck: Yes no lymphadenopathy Thyroid: Thyroid normal Resp Effort & Inspection: normal respiratory effort Auscultation: clear to auscultation bilaterally Percussion: percussion normal Cardio Jugular venous distension: no JVD Palpation: normal PMI Rate: regular rate Rhythm: regular rhythm Heart sounds: S1 normal heart sound present and S2 normal heart sound present GI Inspection: Yes normal to inspection Palpation (GI): No hepatosplenomegaly present Skin General skin exam: no rashes or lesions noted Extrem General: Yes no clubbing, cyanosis or edema Assessment and Plan Assessment & Plan (1) Generalized body aches: Code(s): R52 - Pain, unspecified Plan: rx Medications: New azithromycin take 500 mg today (day 1), then 250 mg for 4 days (days 2-5) PO 6 tabs 0RF Coding Level of Care Code Est Pt Level 3 (72946) Diagnoses Generalized body aches R52
== END 2023-01-28 10:23 | disposition home or self-care (01) ==
PROVIDERS: PCP Internal Medicine; Visit Provider Internal Medicine
DX: R52 Pain, unspecified (principal)
CPT/HCPCS: 99213

== ENCOUNTER 2023-05-06 09:42 | Outpatient (AMB) | payer OTHER, SELFPAY ==
--- NOTE | 2023-05-06 09:49 | A.OFFVIS_ITS ---
Intake Vital Signs 05/06/23 09:50 Height 5 ft 7 in Weight 189 lb 2.506 oz BMI 29.6 BP 142/70 H Blood Pressure Location Rt brachial Position Sitting Pulse 84 Pulse Source Pulse Oximeter Pulse Oximetry (%) 96 Oxygen Delivery Method Room Air Intake Visit Reasons: FMS Intake Note: Patient last seen 10/28/22 presents today for follow up. Reports intermittent pain, although it has improved. 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 On duloxetine 60 mg nightly. Doing well overall. Continues to have generalized pain, but she feels better on duloxetine. She is having intermittent pain on the outer aspect of her left hip and right buttock pain. Initial history: This is a 51-year-old female with a past medical history of anxiety, hypertension, dyslipidemia who presents for evaluation of diffuse pain. The condition started many years ago with diffuse body pain especially shoulders, arms, forearms, thighs, hips. She has bilateral arm heaviness . Patient cannot tell what makes her pain better or worse. Patient is able to walk 4-5 miles a day. Minimal knee pain with activity and occasional swelling. A few weeks ago she had swollen left medial epicondyle area, she applied honey with Cabbage with some relief. Patient sometimes sleeps as little as 4 hours sometimes 6, she wakes up early due to anxiety and worrying about multiple t hings. 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 Cognitive needs: No Hearing needs: No Vision needs: Yes Review of Systems Musc Reports myalgias and Reports arthralgias Physical Exam Vital Signs: Last Vital Signs Pulse 84 05/06/23 09:50 BP 142/70 H 05/06/23 09:50 Pulse Ox 96 05/06/23 09:50 Oxygen Delivery Method Room Air 05/06/23 09:50 BMI result Body Mass Index 29.6 Const General: cooperative, healthy appearing, comfortable, no acute distress and well developed Nutritional Appearance: overweight Limitations: no limitations HEENT Head: Yes normocephalic and Yes atraumatic Resp Effort & Inspection: normal respiratory effort and able to speak in complete sentences Extrem Other: No synovitis No fibromyalgia tender points today Left trochanteric bursa area tenderness with negative Shantel's test Assessment & Plan Assessment & Plan (1) Fibromyalgia, primary: Code(s): M79.7 - Fibromyalgia Plan: This is a 52-year-old female with fibromyalgia presents for follow-up. On duloxetine 60 mg nightly. Patient states 60% improvement in her overall pain since starting duloxetine. Continue duloxetine 60 mg nightly. Advised patient to request duloxetine r efills from her PCP. (2) Elevated LFTs: Code(s): R79.89 - Other specified abnormal findings of blood chemistry Plan: Was evaluated by Gastroenterology and started on vitamin E trial (3) Greater trochanteric pain syndrome of left lower extremity: Code(s): M25.552 - Pain in left hip Plan: Mild symptoms. I provided the patient with a printout of home exercises Plan I spent 26 minutes reviewing patient's chart, evaluating patient, placing orders, counseling patient and documenting in the chart Medications: Refilled duloxetine 60 mg PO DAILY 60 caps 2RF Coding Level of Care Code Est Pt Level 4 (43750) Diagnoses Fibromyalgia, primary M79.7 Elevated LFTs R79.89 Greater trochanteric pain syndrome of left lower extremity M25.553
[2023-05-06 09:50] VITALS: BP 142/70; PULSE 84; O2SAT 96; BMI 29.6
== END 2023-05-06 10:19 | disposition home or self-care (01) ==
PROVIDERS: PCP Internal Medicine; Visit Provider Student in an Organized Health Care Education/Training Program
DX: M79.7 Fibromyalgia (principal); R79.89 Other specified abnormal findings of blood chemistry; M25.552 Pain in left hip
CPT/HCPCS: 99214

== ENCOUNTER → 2023-05-06 09:42 | Outpatient (BNVA) | payer OTHER, SELFPAY | PROVIDERS: PCP Internal Medicine; Visit Provider Student in an Organized Health Care Education/Training Program | DX: M79.7 Fibromyalgia (principal); R79.89 Other specified abnormal findings of blood chemistry; M25.552 Pain in left hip; Z79.899 Other long term (current) drug therapy | CPT/HCPCS: 99212 ==

== ENCOUNTER 2023-10-27 10:10 | Outpatient (AMB) | payer OTHER, SELFPAY ==
[2023-10-27 10:12] VITALS: BP 126/82; PULSE 83; O2SAT 96; BMI 30.1
--- NOTE | 2023-10-27 10:12 | MHC.PC.OV ---
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 Accompanied by: Self / Same As Patient Allergies No Known Allergies Allergy (Mild, Verified 10/27/23 10:13) NONE Medication List - Last Reconciled 10/27/23 by Burak Daigle MD atorvastatin 10 mg PO BEDTIME duloxetine 60 mg PO DAILY hydrochlorothiazide 12.5 mg PO DAILY multivitamin 1 tab PO DAILY omega-3 fatty acids 1,000 mg PO DAILY vitamin E (dl, acetate) 360 mg (2 x 180 mg (400 unit)) PO DAILY 3 months Tobacco use date assessed: 10/27/23 Dental Screening Dental Screen Date: 10/27/23 Did you have a dental visit in the last 12 months?: No Did you have a dental problem in the last 6 months where you did not have access to dental care?: No Was dental information given to patient?: Patient has dentist HPI annual exam HPI Details hypertension and hyperlipidemia; doing well [facility] Medical History GERD (gastroesophageal reflux disease) Hyperlipidemia Hypertension Surgical History Hx of colonoscopy History of tubal ligation Family History Father Cancer Mother Diabetes Heart problem Social History Household Members: Spouse Housing: Condominium Alcohol intake: never Patient Tobacco Use Status: Never used Tobacco Tobacco use type: Cigarette e-Cigarette/Vaping Use: Never Used Second Hand Smoke Exposure: No service: No Current occupational status: 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 1. Little interest or pleasure in doing things: not at all 2. Feeling down, depressed, or hopeless: not at all 3. Trouble falling or staying asleep, or sleeping too much: not at all 4. Feeling tired or having little energy: not at all 5. Poor appetite or overeating: not at all 6. Feeling bad about yourself - or that you are a failure or have let yourself or your family down: not at all 7. Trouble concentrating on things, such as reading the newspaper or watching television: not at all 8. Moving or speaking so slowly that other people could have noticed. Or the opposite - being so fidgety or restless that you have been moving around a lot more than usual: not at all 9. Thoughts that you would be better off or of hurting yourself in some way: not at all Total score: 0 Depression Screening Interpretation: Negative Depression Screening Done: Yes 79036 - PHQ-9 Billing: Yes Source: Developed by Drs. Mo Barbosa, Francisca Tyler, David Parker and colleagues, with an educational diane from [employer]. Thrive Questionnaire Date Thrive assessed: 10/27/23 I am a: Patient What is your living situation today?: I have a steady place to live Within the past 12 months, did the food you bought not last and you didn't have the money to get more?: I choose not to answer this question Within the past 12 months, did you worry whether your food would run out before you got money to buy more?: I choose not to answer this question Do you have trouble paying for medicines?: No Do you have trouble getting transportation to medical appointments?: No Do you have trouble paying your heating and electricity bill?: No Do you have trouble taking care of your child, family member or friend?: No Do you have trouble with day-to-day activities such as bathing, preparing meals, shopping, managing finances, etc.?: No Are you currently unemployed and looking for a job?: No Are you interested in more education?: No Please select the resources that you would like help with: Education and None Currently or been in a relationship where the following occur: I choose not to answer THRIVE Score: 0 AUDIT C Alcohol Use Questionnaire (AUDIT-C) 1. How often do you have a drink containing alcohol?: Never Total Score: 0 Score Reviewed/Action Taken: No [place]-7 AMB Questionnaire [place]-7 Date [place] - 7 assessed: 10/27/23 Feeling nervous, anxious, or on edge: 0 = Not at all Not being able to stop or control worryin = Not at all Worrying too much about different things: 1 = Several days Trouble relaxin = Not at all Being so restless that it is hard to sit still: 0 = Not at all Becoming easily annoyed or irritable: 0 = Not at all Feeling afraid as if something awful might happen: 0 = Not at all Total [place]-7 score (0-4 normal; 5-9 mild; 10-14 moderate; 15-21 severe): 1 Source: Developed by Drs. Mo Barbosa, Francisca Tyler, David Parker and colleagues, with an educational diane from [employer]. [place]-7 Assessment Billing [place]-7 Assessment Tool: [place]-7 Assessment [id number] Review of Systems Const Denies chills, Denies fatigue, Denies headache(s) and Denies weight loss Eyes Denies change in vision, Denies diplopia and Denies eye pain ENT Denies vertigo, Denies dizziness, Denies headache(s) and Denies nasal discharge Card Denies chest pain, Denies rapid heart rate and Denies dyspnea on exertion Resp Denies chest congestion, Denies cough, Denies pain with cough and Denies dyspnea on exertion GI Denies abdominal pain, Denies hematochezia and Denies change in bowel habits Musc Denies myalgias, Denies arthralgias and Denies joint swelling Skin/Breast Denies lesions and Denies unusual bruising Neuro Denies vertigo, Denies dizziness, Denies headache(s) and Denies focal weakness Endo Denies fatigue Physical exam (Primary Care) Vital Signs: Last Vital Signs Pulse 83 10/27/23 10:12 BP 126/82 10/27/23 10:12 Pulse Ox 96 10/27/23 10:12 Oxygen Delivery Method Room Air 10/27/23 10:12 BMI result Body Mass Index 30.1 Tobacco/Smoking Status: Tobacco use Status Tobacco use date assessed 10/27/23 10/27/23 10:17 Patient Tobacco Use Status Never used Tobacco 10/27/23 10:13 Tobacco use type Cigarette 10/27/23 10:17 e-Cigarette/Vaping Use Never Used 10/27/23 10:13 PHQ-9: PHQ-9 Score PHQ-9: Total score 0 10/27/23 10:17 Depression Screening Interpretation: Negative Thrive Assessment: Date of Thrive Assessment Date Thrive assessed 10/27/23 10/27/23 10:17 Currently or been in a relationship where the following occur: I choose not to answer Const General: cooperative, healthy appearing and no acute distress Orientation/consciousness: oriented to person, oriented to place and oriented to time HENMT Head: Yes normal to inspection, Yes normocephalic and Yes atraumatic Mouth: Normal oral and palatal mucosa present and tongue normal Throat: Yes posterior oropharynx normal and Yes uvula midline Eyes General: appearance normal, both eyes and all related structures Neck Neck: Yes normal visual inspection, Yes full ROM and Yes no lymphadenopathy Thyroid: Thyroid normal Carotids: normal carotid upstroke Chest Chest palpation & inspection: normal inspection of the chest Resp Effort & Inspection: normal respiratory effort and able to speak in complete sentences Auscultation: clear to auscultation bilaterally Cardio Jugular venous distension: no JVD Palpation: normal PMI Rate: regular rate Rhythm: regular rhythm Heart sounds: S1 normal heart sound present and S2 normal heart sound present GI Inspection: Yes normal to inspection Palpation (GI): Soft to palpation and No hepatosplenomegaly present Auscultation: normal bowel sounds General: Yes no CVA tenderness Back/Spine/Pelvis Back: no CVA tenderness Skin General skin exam: no rashes or lesions noted Neuro General: oriented to person, oriented to place and oriented to time Extrem General: Yes normal to inspection and Yes full ROM Assessment and Plan Assessment & Plan (1) Physical exam: Code(s): Z00.00 - Encounter for general adult medical examination without abnormal findings Plan: stable; same rx (2) Hypertension: Code(s): I10 - Essential (primary) hypertension Plan: stable; same rx (3) Hyperlipidemia: Code(s): E78.5 - Hyperlipidemia, unspecified Qualifiers: Hyperlipidemia type: pure hypercholesterolemia Qualified Code(s): E78.00 - Pure hypercholesterolemia, unspecified Plan: stable; same rx Orders: Orders Lipid Panel Today Z13.220 - Encounter for screening for lipoid disorders Thyroid Stimulating Hormone Today Z13.29 - Encounter for screening for other suspected endocrine disorder Complete Blood Count Auto Diff Today Z13.0 - Encounter for screening for diseases of the blood and blood-forming organs and certain disorders involving the immune mechanism Comprehensive [place]. Panel Fast Today Z13.9 - Encounter for screening, unspecified Referrals Gastroenterology Referral Z12.11 - Encounter for screening for malignant neoplasm of colon Medications: Refilled duloxetine 60 mg PO DAILY 60 caps 2RF hydrochlorothiazide 12.5 mg PO DAILY 90 tabs 1RF I10 - Essential (primary) hypertension atorvastatin 10 mg PO BEDTIME 30 tabs 0RF E78.5 - Hyperlipidemia, unspecified Coding Level of Care Code Est Pt Prev Care 40-64y(26197) Diagnoses Physical exam Z00.00 Primary hypertension I10 Pure hypercholesterolemia E78.00 Hyperlipidemia type: pure hypercholesterolemia Additional Codes [place]-7 Assessment Billing - [place]-7 Assessment Tool: [place]-7 Assessment 63041 ([id number])
== END 2023-10-27 10:31 | disposition home or self-care (01) ==
PROVIDERS: PCP Internal Medicine; Visit Provider Internal Medicine
DX: Z00.00 Encounter for general adult medical examination without abnormal findings (principal); I10 Essential (primary) hypertension; E78.00 Pure hypercholesterolemia, unspecified
CPT/HCPCS: 99396

== ENCOUNTER → 2023-12-03 10:38 | Outpatient (BNVA) | payer OTHER, SELFPAY | PROVIDERS: PCP Internal Medicine; Visit Provider Student in an Organized Health Care Education/Training Program | DX: M79.7 Fibromyalgia (principal) | CPT/HCPCS: 99212 ==

== ENCOUNTER → 2023-12-03 10:38 | Outpatient (AMB) | payer OTHER, SELFPAY ==
--- NOTE | 2023-12-03 10:45 | MHC.OFFVIS ---
Vital Signs 12/03/23 10:50 Height 5 ft 7 in Weight 194 lb 3.636 oz BMI 30.4 BP 122/80 Blood Pressure Location Lt brachial Position Sitting Pulse 77 Pulse Source Pulse Oximeter Pulse Oximetry (%) 98 Oxygen Delivery Method Room Air Intake Visit Reasons: FMS Intake Note: Patient presents for FMS. Allergies No Known Allergies Allergy (Mild, Verified 12/03/23 10:49) NONE Medication List - Last Reconciled 12/03/23 by Марина Rojas MD atorvastatin 10 mg PO BEDTIME duloxetine 60 mg PO DAILY hydrochlorothiazide 12.5 mg PO DAILY multivitamin 1 tab PO DAILY omega-3 fatty acids 1,000 mg PO DAILY vitamin E (dl, acetate) 360 mg (2 x 180 mg (400 unit)) PO DAILY 3 months HPI Comments Details: 53-year-old female with fibromyalgia presents for follow-up. On duloxetine 60 mg nightly. Doing well overall. She states that she has been having some pain in her right index in between her PIP and DIP. Worse with full flexion. No Swelling. Initial history: This is a 51-year-old female with a past medical history of anxiety, hypertension, dyslipidemia who presents for evaluation of diffuse pain. The condition started many years ago with diffuse body pain especially shoulders, arms, forearms, thighs, hips. She has bilateral arm heaviness . Patient cannot tell what makes her pain better or worse. Patient is able to walk 4-5 miles a day. Minimal knee pain with activity and occasional swelling. A few weeks ago she had swollen left medial epicondyle area, she applied honey with Cabbage with some relief. Patient sometimes sleeps as little as 4 hours sometimes 6, she wakes up early due to anxiety and worrying about multiple things. 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 Cognitive needs: No Hearing needs: No Vision needs: Yes Female Reproductive History Menstrual Total pregnancies: 2 Number of Living Children: 2 Review of Systems Musc Reports arthralgias Physical Exam Vital Signs: Last Vital Signs Pulse 77 12/03/23 10:50 BP 122/80 12/03/23 10:50 Pulse Ox 98 12/03/23 10:50 Oxygen Delivery Method Room Air 12/03/23 10:50 BMI result Body Mass Index 30.4 Const General: cooperative, healthy appearing, comfortable, no acute distress and well developed Nutritional Appearance: overweight Limitations: no limitations HEENT Head: Yes normocephalic and Yes atraumatic Resp Effort & Inspection: normal respiratory effort and able to speak in complete sentences Extrem Other: On examination of the fingers there are no tender or swollen joints. No prominent Heberden's or Oniel's nodes No finger triggering Able to fully flex her fingers bilaterally No synovitis No fibromyalgia tender points today Assessment & Plan Assessment & Plan (1) Fibromyalgia, primary: Code(s): M79.7 - Fibromyalgia Category: Medical Plan: This is a 53-year-old female with fibromyalgia presents for follow-up. On duloxetine 60 mg nightly prescribed by PCP. Doing better overall since duloxetine was started. No need for routine follow-up with Rheumatology, follow-up as needed Plan I spent 16 minutes reviewing patient's chart, evaluating patient, counseling patient and documenting in the chart Coding Level of Care Code Est Pt Level 3 (25349) Diagnoses Fibromyalgia, primary M79.7
[2023-12-03 10:50] VITALS: BP 122/80; PULSE 77; O2SAT 98; BMI 30.4
== END ==
PROVIDERS: PCP Internal Medicine; Visit Provider Student in an Organized Health Care Education/Training Program
DX: M79.7 Fibromyalgia (principal)
CPT/HCPCS: 99213

== ENCOUNTER 2024-02-04 09:58 | Outpatient (REF) | payer OTHER, SELFPAY ==
[2024-02-04 10:15] LABS: MANUAL DIFF FLAG NO
[2024-02-04 10:42] LABS: Basophils Percent Auto 0.6 % (0-2); Eosinophils Absolute Auto 0.2 X10*3/uL (0.0-0.4); Eosinophils Percent Auto 3.4 % (0-4); Hematocrit 42.5 % (37.0-47.0); Hemoglobin 14.2 g/dl (12.0-16.0); Imm Gran Abs Auto 0.01 X10*3/uL (0.00-0.03); Imm Gran Pct Auto 0.2 % (0.0-0.4); Lymphocytes Absolute Auto 1.8 X10*3/uL (1.2-4.9); Lymphocytes Percent Auto 38.2 % (20-40); Mean Corpuscular HGB Conc 33.4 g/dl (31.0-35.0); Mean Corpuscular Hemoglobin 28.2 pg (27.0-33.0); Mean Corpuscular Volume 84.3 fL (80.0-98.0); Mean Platelet Volume 10.2 fL (9.4-12.3); Monocytes Absolute Auto 0.4 X10*3/uL (0.1-1.2); Monocytes Percent Auto 8.9 % (2-11); Neutrophils Absolute Auto 2.3 x10*3/uL (2.0-8.3); Neutrophils Percent Auto 48.7 % (45-73); Platelet Count 267 X10*3/uL (160-400); Red Blood Count 5.04 X10*6/uL (4.20-5.50); Red Cell Distribution Width 12.9 % (11.0-16.0); White Blood Count 4.7 X10*3/uL (4.8-10.8)
[2024-02-04 11:31] LABS: Alanine Aminotransferase 54 U/L (0-31); Albumin Level 4.4 g/dL (3.5-5.0); Alkaline Phosphatase 70 U/L (39-117); Anion Gap 13 (12-20); Aspartate Amino Transferase 36 U/L (5-31); Bilirubin Total 1.1 mg/dL (0.0-1.0); Blood Urea Nitrogen 13 mg/dL (9-16); Calcium 9.7 mg/dL (8.4-10.2); Carbon Dioxide 28 mmol/L (22-29); Chloride 105 mmol/L (96-108); Cholesterol 179 mg/dL (<200); Estimated Glomerular Filt Rate > 60; Glucose Fasting 107 mg/dL (60-99); HDL Cholesterol 43 mg/dL (>40); LDL Cholesterol Calculated 112 mg/dL (<100); Sodium 142 mmol/L (135-145); Thyroid Stimulating Hormone 1.27 uIU/mL (0.32-4.0); Total Protein 7.2 g/dL (6.5-8.0); Triglycerides 122 mg/dL (<150)
== END 2024-02-04 09:59 | disposition home or self-care (01) ==
LOC: HO.LAB 09:58
PROVIDERS: PCP Internal Medicine; Visit Provider Internal Medicine
DX: Z13.9 Encounter for screening, unspecified (principal); Z13.220 Encounter for screening for lipoid disorders; Z13.29 Encounter for screening for other suspected endocrine disorder; Z13.0 Encounter for screening for diseases of the blood and blood-forming organs and certain disorders involving the immune mechanism
CPT/HCPCS: 36415; 80053; 80061; 84443; 85025

== ENCOUNTER 2024-04-22 11:24 | Emergency (ER) | payer OTHER, SELFPAY ==
--- NOTE | ~2024-04-22 | CT_ITS ---
EXAMINATION: CT CERVICAL SPINE WITHOUT CONTRAST CLINICAL INFORMATION: Fall, head strike. COMPARISON: None available. TECHNIQUE: Spiral CT imaging of the cervical spine performed in axial plane without contrast. Multiplanar reformatted images were constructed from the axial data set. This CT examination was performed using dose optimization techniques as appropriate, variously including the following: *Automated exposure control *Adjustment of mA and/or kV according to patient size (this includes techniques or standardized protocols for targeted exams where dose is matched to indication/reason for exam; i.e. extremities or head) *Use of iterative reconstruction technique FINDINGS: CORONAL ALIGNMENT: -Normal SAGITTAL ALIGNMENT: -Straightened lordosis. -No subluxations. C1-C2 AND CRANIOCERVICAL JUNCTION: -Intact and aligned. Mild degenerative changes anteriorly. VERTEBRAL BODIES AND FACETS: -No fracture, compression deformity, traumatic subluxation, or suspicious bone lesion. -Normal facet alignment with normal-appearing facets. DISCS: -Moderate disc degeneration C6-7. Associated disc osteophytic spurring. -Mild disc degeneration C3-4, C5-6. CENTRAL CANAL: -No evidence of high-grade central canal narrowing or large disc herniation allowing for modality limitations. PREVERTEBRAL AND PARAVERTEBRAL SOFT TISSUES: -Normal. -Normal thyroid. LUNG APICES: -Clear bilaterally. No pneumothorax or effusion. OTHER: Moderate degenerative changes left TM joint. CT/CT cervical spine wo IV con IMPRESSION: 1. No CT evidence of acute cervical spine fracture or injury. 2. Moderate degenerative disc change C6-7. Electronically signed by: Cricket Parry MD 04/22/2024 01:57 PM [facility]
--- NOTE | ~2024-04-22 | US_ITS ---
EXAMINATION: US ABDOMEN LIMITED CLINICAL INFORMATION: Right upper quadrant abdominal pain.. COMPARISON: June 24, 2022. TECHNIQUE: Real-time imaging of the right upper quadrant abdominal viscera. FINDINGS: PANCREAS: No gross peripancreatic fluid collections. LIVER: Liver measures 15 cm. Increased echotexture. No gross solid or cystic lesion. No intrahepatic biliary ductal dilatation. No gross nodular surface. GALLBLADDER: No pericholecystic fluid collection or gallbladder wall thickening. Fluid-filled gallbladder. COMMON BILE DUCT: 4 mm.. RIGHT KIDNEY: 12 cm. No solid or cystic lesion. No hydronephrosis. Renal cortical thickness is normal. Normal flow on color Doppler interrogation of the renal hilum. FREE FLUID: None. US/US abdomen limited IMPRESSION: Hepatic steatosis. No cholelithiasis. No hydronephrosis, right kidney. No ascites. Unable to evaluate pancreas. Electronically signed by: Deven Lai MD 04/22/2024 12:55 PM [facility]
--- NOTE | ~2024-04-22 | CT_ITS ---
EXAMINATION: CT HEAD WITHOUT CONTRAST CLINICAL INFORMATION: Fall, head strike. COMPARISON: None available. TECHNIQUE: Contiguous axial imaging was performed from the skull base to vertex without intravenous administration of contrast. This CT examination was performed using dose optimization techniques as appropriate, variously including the following: *Automated exposure control *Adjustment of mA and/or kV according to patient size (this includes techniques or standardized protocols for targeted exams where dose is matched to indication/reason for exam; i.e. extremities or head) *Use of iterative reconstruction technique FINDINGS: There is no evidence of intracranial hemorrhage or extra-axial fluid collection. There is no mass effect, or edema. No CT evidence of acute territorial infarct. Ventricles, sulci, and cisterns are normal in size and configuration for patient age. No hydrocephalus. No midline shift. Negative hyperdense MCA sign. Negative insular ribbon sign. No white matter abnormalities. Normal pituitary. Globes and orbital contents image normally. Extracranial soft tissues demonstrate normal high left parietal scalp soft tissue swelling. The paranasal sinuses, mastoid air cells, and tympanic cavities are normally aerated. No suspicious bony abnormalities. There are no acute fractures evident. CT/CT head/brain wo IV con IMPRESSION: No acute intracranial abnormality. No fractures. Electronically signed by: Cricket Parry MD 04/22/2024 01:52 PM [facility]
[2024-04-22 11:32] VITALS: BP 138/92; PULSE 73; O2SAT 97
[2024-04-22 12:16] VITALS: BP 127/85; PULSE 74; RESP 18; TEMP 36.5; O2SAT 99; BMI 30.3
--- NOTE | 2024-04-22 12:16 | ED.FALL ---
HPI - Fall General Chief Complaint: Fall Stated Complaint: FALL,+HS,-THIN,-LOC Time Seen by Provider: 04/22/24 16:16 Source: patient, RN notes reviewed and old records reviewed Mode of arrival: ambulatory History of Present Illness ED Provider: Gini Calabrese PA-C HPI Narrative: 53-year-old female with a past medical history of HTN, fibromyalgia, GERD, anxiety, presenting to the ED complaining of headache s/p mechanical slip and fall on ice w/+ head strike WELDER TACK. Denies LOC or anticoagulation use. States was planning to come to the emergency department today anyway due to nausea and upper abdominal pain x2-3 weeks. Denies symptoms prior to fall, neck / back pain, vomiting, diarrhea, fever, chills Related Data Previous Rx's ?Medication ?Instructions ?Recorded multivitamin 1 tab PO DAILY #90 tabs 11/03/21 omega-3 fatty acids 1,000 mg 1,000 mg PO DAILY #90 caps 01/06/22 capsule vitamin E (dl, acetate) 180 mg 360 mg (2 x 180 mg (400 unit)) PO 08/06/22 (400 unit) capsule DAILY 3 months #180 caps duloxetine 60 mg capsule,delayed 60 mg PO DAILY #60 caps 10/27/23 release hydrochlorothiazide 12.5 mg tablet 12.5 mg PO DAILY #90 tabs 12/30/23 atorvastatin 10 mg tablet 10 mg PO BEDTIME #30 tabs 02/04/24 Allergies Allergy/AdvReac Type Severity Reaction Status Date / Time No Known Allergies Allergy Mild NONE Verified 04/22/24 12:19 Review of Systems Review of Systems: Yes all other systems are reviewed and are negative Constitutional: Constitutional: Reports as per HPI Neurologic: Denies Abnormal speech present [facility] Past Medical History Attestation statement: The following information was validated with the patient. Source: old records reviewed Medical History GERD (gastroesophageal reflux disease) Hyperlipidemia Hypertension Surgical History Hx of colonoscopy History of tubal ligation Family History Family History Father Cancer Mother Diabetes Heart problem Social History Social History Household Members: Spouse [facility] Alcohol intake: never Patient Tobacco Use Status: Never used Tobacco Tobacco use type: Cigarette e-Cigarette/Vaping Use: Never Used Second Hand Smoke Exposure: No Advance Directives: No Advance Directives Information Provided: No Do you have a plan to hurt others: No Plan service: No Current occupational status: 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 Cognitive needs: No Hearing needs: No Vision needs: Yes Physical Exam Vital Signs: Vital Signs: Last Vital Signs Temp 97.6 F 04/22/24 16:31 Pulse 82 04/22/24 16:31 Resp 20 04/22/24 16:31 BP 135/87 04/22/24 16:31 Pulse Ox 98 04/22/24 16:31 O2 Del Method Room Air 04/22/24 16:31 BMI result Body Mass Index 30.3 Const: General: cooperative, healthy appearing and no acute distress Orientation/consciousness: patient oriented x3 Limitations: no limitations HEENT: Head: Yes normal to inspection, Yes atraumatic, No Wood's sign and No raccoon eyes Ears: hearing grossly normal bilaterally General nose exam: Normal external nose present Face and sinus: Yes normal facial exam Eyes: General: appearance normal, both eyes and all related structures Pupils: Equal, round and reactive pupils present EOM: EOMs intact bilaterally Neck: Neck: Yes normal visual inspection and Yes no meningeal signs Resp: Effort & Inspection: normal respiratory effort and no respiratory distress Auscultation: clear to auscultation bilaterally Cardio: Rate: regular rate Heart sounds: S1 normal heart sound present and S2 normal heart sound present GI: Inspection: Yes normal to inspection Palpation (GI): Soft to palpation, Tenderness to palpation present (GI) in the epigastrum and in the RUQ; with no rebound tenderness, no guarding and not rigid : General: Yes no CVA tenderness Back/Spine/Pelvis: Other: No midline cervical/thoracic/lumbar spinous tenderness/step-off or deformity Back: no CVA tenderness Skin: Rashes: no rashes Wounds: no wounds Neuro: General: patient oriented x3, gait normal, tone normal, moves all extremities, no meningeal signs, no focal motor deficits and CN's II-XI intact bilaterally Cranial nerves: Yes CN's II-XII intact bilaterally, Yes Equal, round and reactive pupils present and Yes Bilaterally intact EOM present Cognition (Neuro): normal cognition Speech: No Abnormal speech present Gait exam (Neuro): Normal gait present Motor exam (neuro): 5/5 motor strength present throughout Extrem: General: Yes normal to inspection Course Course Course Narrative: This is a Rapid Medical Exam performed in triage by Gini Calabrese PA-C. Full HPI, ROS and PE to be performed by primary ED provider. 53yo F w/pmhx HTN, fibromyalgia, GERD, anxiety, presenting to the ED c/o GONZALEZ s/p mechanical slip & fall w/head strike WELDER TACK. Denies LOC or AC use. was coming to the ED today anyway due to nausea x2-3 wks & RUQ abd pain PE: no reproducible on head tenderness. No midline cervical spinous tenderness. Abdomen soft with epigastric /RUQ tenderness Plan: Head/C-spine CT - labs reassuring. UA negative CT head/brain wo IV con IMPRESSION: No acute intracranial abnormality. No fractures. CT cervical spine wo IV con IMPRESSION: 1. No CT evidence of acute cervical spine fracture or injury. 2. Moderate degenerative disc change C6-7. US abdomen limited IMPRESSION: Hepatic steatosis. No cholelithiasis. No hydronephrosis, right kidney. No ascites. Unable to evaluate pancreas. Results discussed with patient including worrisome signs and symptoms and strict return precautions, and when to return to the emergency department. They verbalized understanding and feel safe for discharge at this time. Medical Decision Making Medical Decision Making MDM Narrative: 53-year-old female with a past medical history of HTN, fibromyalgia, GERD, anxiety, presenting to the ED complaining of headache s/p mechanical slip and fall on ice w/+ head strike WELDER TACK. was planning to come to the emergency department today anyway due to nausea and upper abdominal pain x2-3 weeks. on exam vital signs stable, NAD, nontoxic appearing, no evidence of trauma, no midline spinous tenderness throughout. No focal neuro deficits. Abdomen is soft with epigastric/ RUQ tenderness, no rebound or guarding. Concern for fracture vs ICH vs cholecystitis/lithiasis vs pancreatitis vs GERD/gastritis. Lower suspicion for appendicitis /diverticulitis. Plan: Head/ C-spine CT, labs, UA, ultrasound Please refer to course for remaining clinical decision making, interpretation of labs/imaging results, and discussions with consultants and/or family members. Differential Diagnosis Differential Diagnoses: The differential diagnosis associated with the presentation includes As above Admission/Observation Consideration of admission/observation: Escalation of care including admission/observation considered Lab Data MDM Lab Attestation statement: I reviewed the patient's lab results. 04/22/24 13:18 04/22/24 13:18 Labs: Lab Results 04/22/24 Range/Units 13:18 WBC 6.6 (4.8-10.8) X10*3/uL RBC 5.02 (4.20-5.50) X10*6/uL Hgb 14.2 (12.0-16.0) g/dl Hct 41.6 (37.0-47.0) % MCV 82.9 (80.0-98.0) fL MCH 28.3 (27.0-33.0) pg MCHC 34.1 (31.0-35.0) g/dl RDW 13.0 (11.0-16.0) % Plt Count 247 (160-400) X10*3/uL MPV 9.9 (9.4-12.3) fL Immature Gran % (Auto) 0.3 (0.0-0.4) % Neut % (Auto) 62.8 (45-73) % Lymph % (Auto) 27.2 (20-40) % [place] % (Auto) 6.4 (2-11) % Eos % (Auto) 3.0 (0-4) % Baso % (Auto) 0.3 (0-2) % Lymph # (Auto) 1.8 (1.2-4.9) X10*3/uL [place] # (Auto) 0.4 (0.1-1.2) X10*3/uL Eos # (Auto) 0.2 (0.0-0.4) X10*3/uL Baso # (Auto) 0.0 (0.0-0.2) X10*3/uL Abs Immat Gran (auto) 0.02 (0.00-0.03) X10*3/uL Absolute Neuts (auto) 4.1 (2.0-8.3) x10*3/uL Absolute Nucleated RBC 0.000 (0.0-0.012) X10*3/uL Nucleated RBC % (auto) 0.0 (0.0-0.2) /100WBC PT 10.5 L (10.9-12.4) SEC INR 0.9 (0.9-1.1) Sodium 140 (135-145) mmol/L Potassium 3.8 (3.3-5.1) mmol/L Chloride 108 (96-108) mmol/L Carbon Dioxide 26 (22-29) mmol/L Anion Gap 10 L (12-20) BUN 16 (9-16) mg/dL Creatinine 0.72 (0.5-1.4) mg/dL Estim Creat Clear Calc 103.9 Estimated GFR > 60 Random Glucose 101 (60-115) mg/dL Calcium 9.4 (8.4-10.2) mg/dL Magnesium 2.0 (1.6-2.6) mg/dL Total Bilirubin 0.7 (0.0-1.0) mg/dL Direct Bilirubin 0.2 (0.0-0.5) mg/dL AST 34 H (5-31) U/L ALT 55 H (0-31) U/L Alkaline Phosphatase 91 (39-117) U/L Total Protein 7.4 (6.5-8.0) g/dL Albumin 4.3 (3.5-5.0) g/dL Lipase 14 (8-78) U/L Urine Color Yellow Urine Appearance Clear Urine pH 6.5 (5.0-9.0) Ur Specific [place] 1.020 (1.005-1.025) Urine Protein Negative (Neg-Trace) mg/dL Urine Glucose (UA) Negative (Negative) mg/dL Urine Ketones Negative (Negative) mg/dL Urine Blood Negative (Negative) Urine Nitrite Negative (Negative) Ur Leukocyte Esterase Negative (Negative) Urine Test NEGATIVE (NEGATIVE) Independent Interpretation I performed an independent interpretation of an: Ultrasound and CT Scan Radiology Impression Discussion of test interpretation with radiology: I have reviewed the radiologist's reading. Independent Historian Clinical information obtained from an independent historian. History obtained from or confirmed by: Spouse External Record Review External record reviewed: Inpatient record, Office record, Outpatient record, Prior outpatient labs, Prior outpatient radiology, Primary care record and Outside ED record Tests considered The following testing was considered but not selected: As above Prescription Management I considered prescription management with: Pain Medication Chronic Conditions Patient?s care impacted by: Other Social Determinants Patient?s care significantly limited by Social Determinants of Health including: Other Social Determinant of Health Discharge Plan Discharge Clinical Impression: Head injury, Abdominal pain, RUQ Patient Disposition: Home, Self-Care Instructions: Head Injury (ED), Abdominal Pain (ED) Additional Instructions: your blood work, CT scan, ultrasound were reassuring Your ultrasound does show fatty liver, please avoid fatty/ greasy foods and take out please have close follow-up with her doctor Take Tylenol and ibuprofen at home for headache If her symptoms persist or worsen or pain is unbearable, you are unable to eat or drink, persistent nausea/vomiting, headache, weakness return to the ED Prescriptions: No Action multivitamin Tablet 1 tab PO DAILY Qty: 90 0RF hydrochlorothiazide 12.5 mg tablet 12.5 mg PO DAILY Qty: 90 1RF atorvastatin 10 mg tablet 10 mg PO BEDTIME Qty: 30 3RF omega-3 fatty acids 1,000 mg capsule 1,000 mg PO DAILY Qty: 90 0RF duloxetine 60 mg capsule,delayed release(DR/EC) 60 mg PO DAILY Qty: 60 2RF vitamin E (dl, acetate) 180 mg (400 unit) capsule 360 mg PO DAILY 90 Days Qty: 180 1RF Referrals: [facility] [Provider Group] - 1 week Burak Daigle MD [Primary Care Provider] - 3 days Interventions: ED Discharge Assessment Last Done: 04/22/24 16:31 Discharge Date/Time: 04/22/24 16:32 Print Language: Ukrainian
[2024-04-22 13:39] LABS: MANUAL DIFF FLAG NO
[2024-04-22 13:40] LABS: Basophils Percent Auto 0.3 % (0-2); Eosinophils Absolute Auto 0.2 X10*3/uL (0.0-0.4); Hematocrit 41.6 % (37.0-47.0); Hemoglobin 14.2 g/dl (12.0-16.0); Imm Gran Abs Auto 0.02 X10*3/uL (0.00-0.03); Imm Gran Pct Auto 0.3 % (0.0-0.4); Lymphocytes Absolute Auto 1.8 X10*3/uL (1.2-4.9); Lymphocytes Percent Auto 27.2 % (20-40); Mean Corpuscular HGB Conc 34.1 g/dl (31.0-35.0); Mean Corpuscular Hemoglobin 28.3 pg (27.0-33.0); Mean Corpuscular Volume 82.9 fL (80.0-98.0); Mean Platelet Volume 9.9 fL (9.4-12.3); Monocytes Absolute Auto 0.4 X10*3/uL (0.1-1.2); Monocytes Percent Auto 6.4 % (2-11); Neutrophils Absolute Auto 4.1 x10*3/uL (2.0-8.3); Neutrophils Percent Auto 62.8 % (45-73); Platelet Count 247 X10*3/uL (160-400); Red Blood Count 5.02 X10*6/uL (4.20-5.50); White Blood Count 6.6 X10*3/uL (4.8-10.8)
[2024-04-22 13:44] LABS: Appearance Urine Clear; Color Urine Yellow; Glucose Urine UA Negative (Negative); Leukocyte Esterase Urine Negative (Negative); Nitrite Urine Negative (Negative); PH 6.5 (5.0-9.0); Urine Blood Negative (Negative); Urine Ketones Negative (Negative); Urine Protein Negative (Neg-Trace)
[2024-04-22 13:45] LABS: UPreg QC Valid YES; Urine Pregnancy NEGATIVE (NEGATIVE)
[2024-04-22 13:46] LABS: INTERNATIONAL NORM RATIO 0.9 (0.9-1.1); Prothrombin Time 10.5 SEC (10.9-12.4)
[2024-04-22 13:55] LABS: Alanine Aminotransferase 55 U/L (0-31); Albumin Level 4.3 g/dL (3.5-5.0); Alkaline Phosphatase 91 U/L (39-117); Anion Gap 10 (12-20); Aspartate Amino Transferase 34 U/L (5-31); Bilirubin Direct 0.2 mg/dL (0.0-0.5); Bilirubin Total 0.7 mg/dL (0.0-1.0); Blood Urea Nitrogen 16 mg/dL (9-16); Calcium 9.4 mg/dL (8.4-10.2); Carbon Dioxide 26 mmol/L (22-29); Chloride 108 mmol/L (96-108); Creatinine Clr Calc Pharmacy 103.9; Estimated Glomerular Filt Rate > 60; Glucose Random 101 mg/dL (60-115); Lipase 14 U/L (8-78); Potassium 3.8 mmol/L (3.3-5.1); Sodium 140 mmol/L (135-145); Total Protein 7.4 g/dL (6.5-8.0)
--- OUTSIDE RECORDS SUMMARY | 2024-04-22 15:42 | XMS_ITS | Patient Health Record ---
Author Organization [facility] Address [address] [place] [address] Care Team Providers Care Telephone Lineman Name Role Phone Burak Daigle MD Primary Care Provider Mo Lynn [facility] [phone] REASON FOR REFERRAL No Information SOCIAL HISTORY Sex Assigned At : Social History Observation Description Sex Assigned At Unknown Encounters Encounter Location Date Provider Diagnosis [facility] [address] [place] [phone] 03/08/2024 Mo Jean [facility] [address] [place] [phone] 03/08/2024 Mo Jean PLAN OF TREATMENT No Information Insurance Providers Payer Name Payer Address Payer Phone Subscriber Number Group Number Insured Name Patient Relationship to Insured Coverage Start Date Coverage End Date [facility] [address] [address] [place], [place] [id number] CLAY PALM Self - patient is the insured
--- OUTSIDE RECORDS SUMMARY | 2024-04-22 15:42 | XMS_ITS ---
Author Organization [facility] Address [address] [place] [phone] Care Team Providers Care Railroad Emergency Services Manager Name Role Phone Burak Daigle MD Primary Care Provider Unavaila Mo Zeng Unavailable [phone] REASON FOR VISIT colon screening Encounters Encounter Location Date Provider Diagnosis [facility] [address] [place] [phone] 03/08/2024 Mo Jean PLAN OF TREATMENT No Information
--- OUTSIDE RECORDS SUMMARY | 2024-04-22 15:42 | XMS_ITS ---
Author Organization [facility] Address [address] [place] [phone] Care Team Providers Care Corporate Attorney Name Role Phone Burak Daigle MD Primary Care Provider Mo Lynn [facility] [phone] Encounters Encounter Location Date Provider Diagnosis [facility] [address] [place] [phone] 03/08/2024 Mo Jean PLAN OF TREATMENT No Information
[2024-04-22 16:16] VITALS: BP 135/87; PULSE 82; RESP 20; TEMP 36.4; O2SAT 98
[2024-04-22 16:31] VITALS: BP 135/87; PULSE 82; RESP 20; TEMP 36.4; O2SAT 98
== END 2024-04-22 16:32 | disposition home or self-care (01) ==
PROVIDERS: Physician Assistant; Emergency Provider Emergency Medicine; PCP Internal Medicine
DX: S09.90XA Unspecified injury of head, initial encounter (principal); R10.11 Right upper quadrant pain; M54.2 Cervicalgia; R51.9 Headache, unspecified; W00.0XXA Fall on same level due to ice and snow, initial encounter; Y93.9 Activity, unspecified; Y92.9 Unspecified place or not applicable; Y99.8 Other external cause status; Z79.899 Other long term (current) drug therapy
CPT/HCPCS: 36415; 70450; 72125; 76705; 80048; 80076; 81003; 81025; 83690; 83735; 85025; 85610; 99282; 99284

== ENCOUNTER → 2024-04-22 12:20 | Outpatient (BNV) | payer OTHER, SELFPAY | PROVIDERS: Visit Provider Radiology Diagnostic Radiology | DX: M50.323 Other cervical disc degeneration at C6-C7 level (principal); S09.90XA Unspecified injury of head, initial encounter; W19.XXXA Unspecified fall, initial encounter; K76.0 Fatty (change of) liver, not elsewhere classified | CPT/HCPCS: 70450; 72125; 76705 ==

== ENCOUNTER 2024-10-28 08:20 | Outpatient (AMB) | payer OTHER, SELFPAY ==
--- OUTSIDE RECORDS SUMMARY | 2024-03-08 06:10 | XMS_ITS ---
Author Organization [facility] Address [address] [place] [phone] Care Team Providers Care Pleater Name Role Phone Burak Daigle MD Primary Care Provider Mo Lynn [phone] REASON FOR VISIT colon screening Encounters Encounter Location Date Provider Diagnosis [facility] [address] [place] [phone] 03/08/2024 Mo Jean Plan Of Treatment No Information Progress Notes * CLAY PALM LDOB:1970 (54 yo F)Acc No.[id number]:03/08/2024 Progress Notes Patient: CLAY REYES Provider: Kelsey Jean MD :1970 A ge:53 Y S ex:Female Date:03/08/2024 Address:[address] [place] [address] , [facility] Pcp:Burak Daigle MD Subjective: * Chief Complaints: [...] 03/08/2024 Generated for Julio César nick/Ruth/Gtitting on: 0 10/28/2024 08:44 AM EDT
[2024-10-28 08:23] VITALS: BP 128/72; PULSE 78; RESP 18; TEMP 36.4; O2SAT 95
--- NOTE | 2024-10-28 08:23 | A.OFFPC_ITS ---
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 Technician Required: No Accompanied by: Self / Same As Patient Allergies No Known Allergies Allergy (Mild, Verified 10/28/24 10:21) NONE Medication List - Last Reconciled 10/28/24 by LORETO Rodgers atorvastatin 10 mg PO BEDTIME duloxetine 60 mg PO DAILY hydrochlorothiazide 12.5 mg PO DAILY multivitamin 1 tab PO DAILY vitamin E (dl, acetate) 360 mg (2 x 180 mg (400 unit)) PO DAILY 3 months Tobacco use date assessed: 10/28/24 Dental Screening Dental Screen Date: 10/28/24 Did you have a dental visit in the last 12 months?: No Did you have a dental problem in the last 6 months where you did not have access to dental care?: No Was dental information given to patient?: No HPI AISSATOU ALEXANDRU/Physical HPI Details The patient is a 54-year-old female presenting with concerns about liver health, fatigue, and joint pain. Initially, the patient was scheduled for transition of care from Dr. Daigle who retired 6 months ago. She was also schedued for a physical exam but this was not completed due to her pressing concerns. The patient reports a history of fatty liver disease, which was identified during a previous ultrasound in March. She experiences mild abdominal discomfort in the right upper quadrant and fatigue, which she attributes to liver issues. Her liver enzymes have been slightly elevated, but not significantly high, and she is concerned about the progression of her liver condition due to her father's history of liver cancer. The patient also reports experiencing gastroesophageal reflux disease (GERD), with symptoms of heartburn and occasional pain when swallowing. She has not been taking any medication for GERD recently and expresses interest in resuming treatment to manage her symptoms. Joint pain is another concern for the patient, particularly affecting her arms and buttocks. She has previously been on medication for joint pain, which she found helpful, but discontinued due to concerns about liver health. The patient is considering restarting the medication to improve her quality of life. The patient has a history of hypertension and hyperlipidemia, for which she is currently on medication. She admits to inconsistent adherence to her cholesterol medication due to concerns about potential side effects of memory loss, but acknowledges the importance of managing her cholesterol levels to prevent cardiovascular complications. 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 She struggles with maintaining a healthy diet, often skipping meals and then overeating, which she recognizes as a factor contributing to her health issues. The patient was on Duloxetine 60 mg that had helped her joint pain and made her calmer but she stopped this medication due to concerns about liver health. 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 1. Little interest or pleasure in doing things: not at all 2. Feeling down, depressed, or hopeless: not at all 3. Trouble falling or staying asleep, or sleeping too much: not at all 4. Feeling tired or having little energy: not at all 5. Poor appetite or overeating: not at all 6. Feeling bad about yourself - or that you are a failure or have let yourself or your family down: not at all 7. Trouble concentrating on things, such as reading the newspaper or watching television: not at all 8. Moving or speaking so slowly that other people could have noticed. Or the opposite - being so fidgety or restless that you have been moving around a lot more than usual: not at all 9. Thoughts that you would be better off or of hurting yourself in some way: not at all Total score: 0 Depression Screening Interpretation: Negative Depression Screening Done: Yes 24033 - PHQ-9 Billing: Yes Source: Developed by Drs. Mo Barbosa, Francisca Tyler, David Parker and colleagues, with an educational diane from [employer]. Thrive Questionnaire Date Thrive assessed: 10/28/24 I am a: Patient What is your living situation today?: I have a steady place to live Within the past 12 months, did the food you bought not last and you didn't have the money to get more?: I choose not to answer this question Within the past 12 months, did you worry whether your food would run out before you got money to buy more?: I choose not to answer this question Do you have trouble paying for medicines?: No Do you have trouble getting transportation to medical appointments?: No Do you have trouble paying your heating and electricity bill?: No Do you have trouble taking care of your child, family member or friend?: No Do you have trouble with day-to-day activities such as bathing, preparing meals, shopping, managing finances, etc.?: No Are you currently unemployed and looking for a job?: No Are you interested in more education?: No Please select the resources that you would like help with: Education and None Currently or been in a relationship where the following occur: I choose not to answer THRIVE Score: 0 AUDIT C Alcohol Use Questionnaire (AUDIT-C) 1. How often do you have a drink containing alcohol?: Never Total Score: 0 Score Reviewed/Action Taken: No ARGENTINA-7 AMB Questionnaire ARGENTINA-7 Date ARGENTINA - 7 assessed: 10/28/24 Feeling nervous, anxious, or on edge: 0 = Not at all Not being able to stop or control worryin = Not at all Worrying too much about different things: 1 = Several days Trouble relaxin = Not at all Being so restless that it is hard to sit still: 0 = Not at all Becoming easily annoyed or irritable: 0 = Not at all Feeling afraid as if something awful might happen: 0 = Not at all Total ARGENTINA-7 score (0-4 normal; 5-9 mild; 10-14 moderate; 15-21 severe): 1 Source: Developed by Drs. Mo Barbosa, Francisca Tyler, David Parker and colleagues, with an educational diane from [employer]. ARGENTINA-7 Assessment Billing ARGENTINA-7 Assessment Tool: ARGENTINA-7 Assessment 14699 Review of Systems Const Denies headache(s), Reports lethargy and Reports weight gain Eyes Denies loss of vision ENT Denies vertigo, Denies dizziness, Denies headache(s) and Denies sore throat Card Denies chest pain, Denies leg edema, Denies lightheadedness, Reports dyspnea on exertion and Reports other (Epigastric discomfort) Resp Denies cough, Denies hemoptysis, Reports dyspnea on exertion and Denies wheezing GI Reports abdominal pain (The epigastric and right upper quadrant discomfort), Denies melena, Denies constipation, Reports heartburn, Denies diarrhea and Denies vomiting Denies urinary frequency, Denies dysuria and Denies urinary urgency Musc Reports arthralgias (Multiple joint pain. Hands left> right, right hip), Denies joint swelling, Denies numbness and Denies tingling Neuro Denies Abnormal speech present, Denies behavioral changes, Denies vertigo, Bradley es dizziness, Denies headache(s), Denies loss of vision, Denies memory loss, Denies numbness and Denies tingling Psych Reports anxiety (Stress related), Denies behavioral changes, Denies depression, Denies memory loss and Denies panic attacks King/Lymph Denies easy bleeding and Denies easy bruising Aller/Immun Denies wheezing Physical exam (Primary Care) Vital Signs: Last Vital Signs Temp 97.5 F 10/28/24 08:23 Resp 18 10/28/24 08:23 Oxygen Delivery Method Room Air 10/28/24 08:23 BMI result Body Mass Index 30.0 Tobacco/Smoking Status: Tobacco use Status Tobacco use date assessed 10/28/24 10/28/24 08:24 Patient Tobacco Use Status Never used Tobacco 10/28/24 08:24 Tobacco use type Cigarette 10/28/24 08:24 e-Cigarette/Vaping Use Never Used 10/28/24 08:24 PHQ-9: PHQ-9 Score PHQ-9: Total score 0 10/28/24 08:24 Depression Screening Interpretation: Negative Thrive Assessment: Date of Thrive Assessment Date Thrive assessed 10/28/24 10/28/24 08:24 Currently or been in a relationship where the following occur: I choose not to answer Const General: healthy appearing, no acute distress, alert and awake Nutritional Appearance: well nourished Orientation/consciousness: oriented to person, oriented to place and oriented to time HENMT Ears: TM's normal bilaterally General nose exam: Normal nasal mucous membranes and turbinates present Eyes Conjunctivae: conjunctivae normal Sclerae: sclerae normal Pupils: Equal, round and reactive pupils present Neck Neck: Yes no lymphadenopathy and Yes no JVD Thyroid: Thyroid normal Carotids: no bruits Resp Effort & Inspection: normal respiratory effort and not tachypneic Auscultation: no crackles, no rales, no rhonchi and no wheezes Cardio Rate: regular rate Rhythm: regular rhythm Heart sounds: no murmurs and normal S1 and S2 GI Palpation (GI): Soft to palpation, Tenderness to palpation present (GI) (Mild) in the epigastrum and periumbilically (Mild), no hepatomegaly and no splenomegaly Auscultation: normal bowel sounds General: Yes no CVA tenderness Back/Spine/Pelvis Back: no CVA tenderness Thoracic/Lumbar Spine: thoracic and lumbar spine normal to inspection and No l umbar spinal tenderness Skin General skin exam: no rashes or lesions noted and dry skin Neuro General: oriented to person, oriented to place and oriented to time Cranial nerves: Yes Equal, round and reactive pupils present Speech: No Abnormal speech present Gait exam (Neuro): Normal gait present Motor exam (neuro): no tremor noted Extrem Right upper extremity: full ROM and Extremity exam: right hand Details: no tenderness Left upper extremity: full ROM and hand Details: no tenderness Right lower extremity: full ROM and hip/thigh Details: no tenderness; no edema Left lower extremity: full ROM; no edema Psych Mental Status: mental status grossly normal Speech and movement: Normal speech and movement present Affect: normal affect Attitude: cooperative Thought process: Normal thought process present Coding Level of Care Code Est Pt Level 4 (57513) Diagnoses Hypertension, unspecified type I10 Hypertension type: unspecified Pure hypercholesterolemia E78.00 Hyperlipidemia type: pure hypercholesterolemia Impaired fasting blood sugar R73.01 Gastroesophageal reflux disease with esophagitis without hemorrhage K21.00 Esophagitis presence: with esophagitis Esophagitis bleeding: without hemorrhage Elevated LFTs R79.89 Multiple joint pain M25.50 Generalized body aches R52 Fatty liver K76.0 Obesity (BMI 30.0-34.9) E66.811 Additional Codes PHQ-9 - 17235 - PHQ-9 Billing: Yes ([id number]) ARGENTINA-7 Assessment Billing - ARGENTINA-7 Assessment Tool: ARGENTINA-7 Assessment 22289 ([id number]) Time Spent (min) 41 Assessment & Plan Assessment & Plan (1) Hypertension: Code(s): I10 - Essential (primary) hypertension Category: Medical Qualifiers: Hypertension type: unspecified Qualified Code(s): I10 - Essential (primary) hypertension (2) Hyperlipidemia: Code(s): E78.5 - Hyperlipidemia, unspecified Category: Medical Qualifiers: Hyperlipidemia type: pure hypercholesterolemia Qualified Code(s): E78.00 - Pure hypercholesterolemia, unspecified (3) Impaired fasting blood sugar: Code(s): R73.01 - Impaired fasting glucose Category: Medical (4) GERD (gastroesophageal reflux disease): Code(s): K21.9 - Gastro-esophageal reflux disease without esophagitis Category: Medical Qualifiers: Esophagitis presence: with esophagitis Esophagitis bleeding: without hemorrhage Qualified Code(s): K21.00 - Gastro-esophageal reflux disease with esophagitis, without bleeding (5) Elevated LFTs: Code(s): R79.89 - Other specified abnormal findings of blood chemistry Category: Medical (6) Multiple joint pain: Code(s): M25.50 - Pain in unspecified joint Category: Medical (7) Generalized body aches: Code(s): R52 - Pain, unspecified Category: Medical (8) Fatty liver: Code(s): K76.0 - Fatty (change of) liver, not elsewhere classified Category: Medical (9) Obesity (BMI 30.0-34.9): Code(s): E66.811 - Obesity, class 1 Category: Medical Plan Plan Patient was informed and verbally consented to the use of an ambient scribe for clinic note documentation during this visit. 1. Fatty Liver Disease The plan for managing fatty liver disease includes dietary modifications and regular exercise to reduce liver fat and improve liver function. The patient is advised to follow a diet low in saturated fats and sugars, and to engage in regular physical activity such as walking. Follow-up liver function tests will be conducted to monitor liver enzyme levels and assess the effectiveness of lifestyle changes. 2. Gastroesophageal Reflux Disease (Gerd) For GERD management, the patient is prescribed omeprazole to reduce stomach acid and alleviate symptoms of heartburn and esophageal discomfort. The patient is instructed to take the medication in the morning before meals and to avoid foods that trigger symptoms. 3. Joint Pain The patient is considering restarting medication for joint pain, which previously provided relief. The medication will be prescribed to help manage pain and improve quality of life, with monitoring for any potential impact on liver health. 4. Hypertension The patient is advised to continue her current antihypertensive medication regim en and to monitor her blood pressure regularly. Lifestyle modifications, including regular exercise and dietary changes, are recommended to support blood pressure control. 5. Hyperlipidemia The patient is encouraged to adhere to her cholesterol-lowering medication to manage hyperlipidemia and reduce cardiovascular risk. Dietary changes, including reducing intake of fried foods and increasing omega-3 fatty acids, are recommended to improve lipid profile. Obesity. The patient is possible interested in being placed on medication to help her lose weight. We will have the patient do an EKG to further evaluated her condition and make a determination if phentermine we will be appropriate for her. Impaired fasting glucose. Encouraged low sugar/carbohydrate diet and activity as tolerated. Labs ordered to further evaluate. Orders: Orders Comprehensive Amory. Panel Fast Today E78.00 - Pure hypercholesterolemia, unspecified, E78.1 - Pure hyperglyceridemia, F41.9 - Anxiety disorder, unspecified, I10 - Essential (primary) hypertension, K21.00 - Gastro-esophageal reflux disease with esophagitis, without bleeding, K76.0 - Fatty (change of) liver, not elsewhere classified, R73.01 - Impaired fasting glucose, R74.01 - Elevation of levels of liver transaminase levels, R79.89 - Other specified abnormal findings of blood chemistry Lipid Panel Today E78.00 - Pure hypercholesterolemia, unspecified, E78.1 - Pure hyperglyceridemia, F41.9 - Anxiety disorder, unspecified, I10 - Essential (primary) hypertension, K21.00 - Gastro-esophageal reflux disease with esophagitis, without bleeding, K76.0 - Fatty (change of) liver, not elsewhere classified, R73.01 - Impaired fasting glucose, R74.01 - Elevation of levels of liver transaminase levels, R79.89 - Other specified abnormal findings of blood chemistry TSH reflex Free T4 Today E78.00 - Pure hypercholesterolemia, unspecified, E78.1 - Pure hyperglyceridemia, F41.9 - Anxiety disorder, unspecified, I10 - Essential (primary) hypertension, K21.00 - Gastro-esophageal reflux disease with esophagitis, without bleeding, K76.0 - Fatty (change of) liver, not elsewhere classified, R73.01 - Impaired fasting glucose, R74.01 - Elevation of levels of liver transaminase levels, R79.89 - Other specified abnormal findings of blood chemistry Vitamin D 25-OH Total Today E78.00 - Pure hypercholesterolemia, unspecified, E78.1 - Pure hyperglyceridemia, F41.9 - Anxiety disorder, unspecified, I10 - Essential (primary) hypertension, K21.00 - Gastro-esophageal reflux disease with esophagitis, without bleeding, K76.0 - Fatty (change of) liver, not elsewhere classified, R73.01 - Impaired fasting glucose, R74.01 - Elevation of levels of liver transaminase levels, R79.89 - Other specified abnormal findings of blood chemistry CRP High Sensitivity Today E78.00 - Pure hypercholesterolemia, unspecified, E78.1 - Pure hyperglyceridemia, F41.9 - Anxiety disorder, unspecified, I10 - Essential (primary) hypertension, K21.00 - Gastro-esophageal reflux disease with esophagitis, without bleeding, K76.0 - Fatty (change of) liver, not elsewhere classified, R73.01 - Impaired fasting glucose, R74.01 - Elevation of levels of liver transaminase levels, R79.89 - Other specified abnormal findings of blood chemistry Erythrocyte Sedimentation Rate Today E78.00 - Pure hypercholesterolemia, unspecified, E78.1 - Pure hyperglyceridemia, F41.9 - Anxiety disorder, unspecified, I10 - Essential (primary) hypertension, K21.00 - Gastro-esophageal reflux disease with esophagitis, without bleeding, K76.0 - Fatty (change of) liver, not elsewhere classified, R73.01 - Impaired fasting glucose, R74.01 - Elevation of levels of liver transaminase levels, R79.89 - Other specified abnormal findings of blood chemistry Complete Blood Count Auto Diff Today E78.00 - Pure hypercholesterolemia, unspecified, E78.1 - Pure hyperglyceridemia, F41.9 - Anxiety disorder, unspecified, I10 - Essential (primary) hypertension, K21.00 - Gastro-esophageal reflux disease with esophagitis, without bleeding, K76.0 - Fatty (change of) liver, not elsewhere classified, R73.01 - Impaired fasting glucose, R74.01 - Stacy vation of levels of liver transaminase levels, R79.89 - Other specified abnormal findings of blood chemistry UA CC w/rflx Micro + Cult Today E78.00 - Pure hypercholesterolemia, unspecified, E78.1 - Pure hyperglyceridemia, F41.9 - Anxiety disorder, unspecified, I10 - Essential (primary) hypertension, K21.00 - Gastro-esophageal reflux disease with esophagitis, without bleeding, K76.0 - Fatty (change of) liver, not elsewhere classified, R73.01 - Impaired fasting glucose, R74.01 - Elevation of levels of liver transaminase levels, R79.89 - Other specified abnormal findings of blood chemistry Vitamin B12 and Folate Today E78.00 - Pure hypercholesterolemia, unspecified, E78.1 - Pure hyperglyceridemia, F41.9 - Anxiety disorder, unspecified, I10 - Essential (primary) hypertension, K21.00 - Gastro-esophageal reflux disease with esophagitis, without bleeding, K76.0 - Fatty (change of) liver, not elsewhere classified, R73.01 - Impaired fasting glucose, R74.01 - Elevation of levels of liver transaminase levels, R79.89 - Other specified abnormal findings of blood chemistry Ferritin Today E78.00 - Pure hypercholesterolemia, unspecified, E78.1 - Pure hyperglyceridemia, F41.9 - Anxiety disorder, unspecified, I10 - Essential (primary) hypertension, K21.00 - Gastro-esophageal reflux disease with esophagitis, without bleeding, K76.0 - Fatty (change of) liver, not elsewhere classified, R73.01 - Impaired fasting glucose, R74.01 - Elevation of levels of liver transaminase levels, R79.89 - Other specified abnormal findings of blood chemistry Hemoglobin A1c Today E78.00 - Pure hypercholesterolemia, unspecified, E78.1 - Pure hyperglyceridemia, F41.9 - Anxiety disorder, unspecified, I10 - Essential (primary) hypertension, K21.00 - Gastro-esophageal reflux disease with esophagitis, without bleeding, K76.0 - Fatty (change of) liver, not elsewhere classified, R73.01 - Impaired fasting glucose, R74.01 - Elevation of levels of liver transaminase levels, R79.89 - Other specified abnormal findings of blood chemistry Uric Acid Today E78.00 - Pure hypercholesterolemia, unspecified, E78.1 - Pure hyperglyceridemia, F41.9 - Anxiety disorder, unspecified, I10 - Essential (primary) hypertension, K21.00 - Gastro-esophageal reflux disease with esophagitis, without bleeding, K76.0 - Fatty (change of) liver, not elsewhere classified, R73.01 - Impaired fasting glucose, R74.01 - Elevation of levels of liver transaminase levels, R79.89 - Other specified abnormal findings of blood chemistry DAYO Reflex Titer and Pattern Today E78.00 - Pure hypercholesterolemia, unspecified, E78.1 - Pure hyperglyceridemia, F41.9 - Anxiety disorder, unspecifi ed, I10 - Essential (primary) hypertension, K21.00 - Gastro-esophageal reflux disease with esophagitis, without bleeding, K76.0 - Fatty (change of) liver, not elsewhere classified, M25.50 - Pain in unspecified joint, R73.01 - Impaired fasting glucose, R74.01 - Elevation of levels of liver transaminase levels, R79.89 - Other specified abnormal findings of blood chemistry ECG 12 lead EKG Today E78.00 - Pure hypercholesterolemia, unspecified, E78.1 - Pure hyperglyceridemia, I10 - Essential (primary) hypertension, Z00.00 - Encounter for general adult medical examination without abnormal findings Medications: New omeprazole 40 mg PO DAILY 30 caps 3RF Refilled omega-3 fatty acids 1,000 mg PO DAILY 90 caps 3RF duloxetine 60 mg PO DAILY 90 caps 3RF multivitamin 1 tab PO DAILY 90 tabs 3RF
--- OUTSIDE RECORDS SUMMARY | 2024-10-28 08:45 | XMS_ITS | Patient Health Record ---
Author Organization [facility] Address [address] [place] [id number] Care Team Providers Care Process Control Manager Name Role Phone Burak Daigle MD Primary Care Provider Mo Lynn [phone] Reason For Referral No Information Encounters Encounter Location Date Provider Diagnosis [facility] [address] [place] [id number] 03/08/2024 Mo Jean Plan Of Treatment No Information Insurance Providers Payer Name Payer Address Payer Phone Subscriber Number Group Number Insured Name Patient Relationship to Insured Coverage Start Date Coverage End Date [facility] [address] [address] [place], [place] [id number] CLAY PALM Self - patient is the insured
== END 2024-10-28 09:16 | disposition home or self-care (01) ==
LOC: HO.HMCH 08:21
PROVIDERS: PCP Internal Medicine
DX: I10 Essential (primary) hypertension (principal); E78.00 Pure hypercholesterolemia, unspecified; E66.811 Obesity, class 1; Z68.30 Body mass index [BMI] 30.0-30.9, adult; R73.01 Impaired fasting glucose; K21.00 Gastro-esophageal reflux disease with esophagitis, without bleeding; R79.89 Other specified abnormal findings of blood chemistry; M25.50 Pain in unspecified joint; R52 Pain, unspecified; K76.0 Fatty (change of) liver, not elsewhere classified

== ENCOUNTER → 2024-10-28 08:20 | Outpatient (REF) | payer OTHER, SELFPAY ==
--- NOTE | 2024-10-28 09:28 | ECG_ITS ---
Test Reason : E78.1 Blood Pressure : */* mmHG Vent. Rate : 66 BPM Atrial Rate : 66 BPM P-R Int : 144 ms QRS Dur : 80 ms QT Int : 418 ms P-R-T Axes : 18 22 32 degrees QTcB Int : 438 ms Normal sinus rhythm Low voltage QRS Borderline ECG When compared with ECG of 10-Jul-2021 21:39, No significant change was found Referred By: Suresh Martinez Electronically Signed By: Reece Smith
[2024-10-28 10:22] LABS: MANUAL DIFF FLAG NO
[2024-10-28 11:03] LABS: Hematocrit 44.7 % (37.0-47.0); Hemoglobin 15.0 g/dl (12.0-16.0); Imm Gran Abs Auto 0.02 X10*3/uL (0.00-0.03); Imm Gran Pct Auto 0.3 % (0.0-0.4); Lymphocytes Absolute Auto 2.1 X10*3/uL (1.2-4.9); Mean Corpuscular HGB Conc 33.6 g/dl (31.0-35.0); Mean Corpuscular Hemoglobin 27.7 pg (27.0-33.0); Mean Corpuscular Volume 82.6 fL (80.0-98.0); NRBC Abs Auto 0.000 X10*3/uL (0.0-0.012); NRBC Pct Auto 0.0 /100WBC (0.0-0.2); Platelet Count 260 X10*3/uL (160-400); Red Blood Count 5.41 X10*6/uL (4.20-5.50); White Blood Count 7.5 X10*3/uL (4.8-10.8)
[2024-10-28 11:10] LABS: Hemoglobin A1C 150.6084 umol/L; Total Hemoglobin (HGBA1C) 3818.4680 umol/L
[2024-10-28 11:26] LABS: Appearance Urine Clear; Glucose Urine UA Negative (Negative); PH 6.5 (5.0-9.0); Specific Gravity - Urine 1.025 (1.005-1.025); UMIC TRIGGER UACC YES
[2024-10-28 11:33] LABS: Alanine Aminotransferase 52 U/L (0-31); Albumin Level 4.9 g/dL (3.5-5.0); Alkaline Phosphatase 83 U/L (39-117); Anion Gap 14 (12-20); Aspartate Amino Transferase 32 U/L (5-31); Blood Urea Nitrogen 17 mg/dL (9-16); Calcium 9.5 mg/dL (8.4-10.2); Carbon Dioxide 26 mmol/L (22-29); Chloride 107 mmol/L (96-108); Cholesterol 210 mg/dL (<200); Estimated Glomerular Filt Rate > 60; HDL Cholesterol 48 mg/dL (>40); Potassium 3.9 mmol/L (3.3-5.1); Sodium 143 mmol/L (135-145); Total Protein 7.7 g/dL (6.5-8.0); Triglycerides 121 mg/dL (<150); Uric Acid 8.2 mg/dL (2.4-5.7)
[2024-10-28 11:51] LABS: Erythrocyte Sedimentation Rate 10 MM/HR (0-20)
[2024-10-28 12:01] LABS: Ferritin 165 ng/mL (10-250)
[2024-10-28 12:08] LABS: Folate 12.2 ng/mL (> or = 4.0); Vitamin B12 290 pg/mL (200-900)
[2024-10-31 14:03] LABS: Anti Nuclear Antibody Screen NEGATIVE (NEGATIVE)
== END ==
LOC: HO.CARD 08:20
DX: Z00.00 Encounter for general adult medical examination without abnormal findings (principal); I10 Essential (primary) hypertension; E78.00 Pure hypercholesterolemia, unspecified; F41.9 Anxiety disorder, unspecified; R73.01 Impaired fasting glucose; K21.00 Gastro-esophageal reflux disease with esophagitis, without bleeding; R79.89 Other specified abnormal findings of blood chemistry; R74.01 Elevation of levels of liver transaminase levels; E78.1 Pure hyperglyceridemia; K76.0 Fatty (change of) liver, not elsewhere classified; M25.50 Pain in unspecified joint; R52 Pain, unspecified; E66.811 Obesity, class 1; Z79.899 Other long term (current) drug therapy; Z68.30 Body mass index [BMI] 30.0-30.9, adult
CPT/HCPCS: 36415; 80053; 80061; 81001; 82306; 82607; 82728; 82746; 83036; 84443; 84550; 85025; 85652; 86038; 86141; 93005; 96127; 99212

== ENCOUNTER → 2024-10-28 09:28 | Outpatient (BNV) | payer OTHER, SELFPAY | PROVIDERS: Visit Provider Internal Medicine Cardiovascular Disease | DX: E78.1 Pure hyperglyceridemia (principal) | CPT/HCPCS: 93010 ==

== ENCOUNTER 2024-12-20 08:54 | Outpatient (AMB) | payer OTHER, SELFPAY ==
--- OUTSIDE RECORDS SUMMARY | 2024-03-08 06:10 | XMS_ITS ---
Author Organization [facility] Address [address] [place] [phone] Care Team Providers Care Mechanical Supervisor Name Role Phone Burak Daigle MD Primary Care Provider Mo Lynn [phone] REASON FOR VISIT colon screening Encounters Encounter Location Date Provider Diagnosis [facility] [address] [place] [phone] 03/08/2024 Mo Jean Plan Of Treatment No Information Progress Notes * CLAY PALM LDOB:1970 (54 yo F)Acc No.[id number]:03/08/2024 Progress Notes Patient: CLAY REYES Provider: Kelsey Jean MD :1970 A ge:53 Y S ex:Female Date:03/08/2024 Address:[address] [place] [address] , [facility] Pcp:Burak Daigle MD Subjective: * Chief Complaints: * 1 . Colon screening. * Medical History: Objective: * Vitals: Assessment: Plan: * Treatment: * * The named appointment provid er may or may not be the originator of this progress note, and it is not deemed complete until electronically signed by the appointment provider. Sign off status: Pending * Provider: Kelsey Jean MD Date: 0 03/08/2024 Generated for Julio César nick/Ruth/Gtitting on: 09:45 AM EDT
[2024-12-20 09:20] VITALS: BP 130/70; PULSE 78; RESP 18; TEMP 36.3; O2SAT 96; BMI 29.6
--- NOTE | 2024-12-20 09:20 | MHC.PC.OV ---
Vital Signs 12/20/24 09:20 Height 5 ft 7 in Weight 189 lb 4 oz BMI 29.6 BP 130/70 Blood Pressure Location Lt brachial Position Sitting Respiration 18 Pulse 78 Pulse Source Pulse Oximeter Temp 97.3 F Temp Source Temporal Artery Scan Pulse Oximetry (%) 96 Oxygen Delivery Method Room Air Intake Visit Reasons: htn/fatigue/elevated liver enzymes/hld Crematory Operator Required: No Accompanied by: Self / Same As Patient Allergies No Known Allergies Allergy (Mild, Verified 12/20/24 09:29) NONE Medication List - Last Reconciled 12/20/24 by LORETO Rodgers atorvastatin 10 mg PO BEDTIME duloxetine 60 mg PO DAILY hydrochlorothiazide 12.5 mg PO DAILY multivitamin 1 tab PO DAILY omega-3 fatty acids 1,000 mg PO DAILY omeprazole 40 mg PO DAILY vitamin E (dl, acetate) 360 mg (2 x 180 mg (400 unit)) PO DAILY 3 months Tobacco use date assessed: 12/20/24 Dental Screening Dental Screen Date: 12/20/24 Did you have a dental visit in the last 12 months?: No Did you have a dental problem in the last 6 months where you did not have access to dental care?: No Was dental information given to patient?: No HPI htn/fatigue/elevated liver enzymes/hld HPI Details The patient is a 54-year-old female presenting for a follow-up visit to review laboratory results and manage chronic conditions. The patient has a history of fatty liver disease with associated mild elevation of liver enzymes; recent labs show an ALT of 52 and AST of 32, which is an improvement from prior levels of 55 and 34, respectively. Her lipid panel revealed a total cholesterol of 210 mg/dL, HDL of 48 mg/dL, and LDL of 138 mg/dL. She has also been found to have a slightly elevated uric acid level, though she is asymptomatic for gout. The patient reports recent onset of constipation, which she believes may be a side effect of her medications, and has noticed blood, which she relates to hemorrhoids. She cannot recall her last colonoscopy but states it was a long time ago and requests a new one. She reports nonspecific pain in her arm. Other laboratory findings were within normal limits, including CBC, glucose, iron stores, B12, vitamin D, folate, thyroid function, and DAYO. Urinalysis showed a small amount of protein, and her CRP, a marker of inflammation, was noted to be elevated. 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 1. Little interest or pleasure in doing things: not at all 2. Feeling down, depressed, or hopeless: not at all 3. Trouble falling or staying asleep, or sleeping too much: not at all 4. Feeling tired or having little energy: nearly every day 5. Poor appetite or overeating: not at all 6. Feeling bad about yourself - or that you are a failure or have let yourself or your family down: not at all 7. Trouble concentrating on things, such as reading the newspaper or watching television: not at all 8. Moving or speaking so slowly that other people could have noticed. Or the opposite - being so fidgety or restless that you have been moving around a lot more than usual: not at all 9. Thoughts that you would be better off or of hurting yourself in some way: not at all Total score: 3 Source: Developed by Drs. Mo Barbosa, Francisca Tyler, David Parker and colleagues, with an educational diane from [employer]. Thrive Questionnaire Date Thrive assessed: 10/28/24 I am a: Patient What is your living situation today?: I have a steady place to live Within the past 12 months, did the food you bought not last and you didn't have the money to get more?: Never true Within the past 12 months, did you worry whether your food would run out before you got money to buy more?: Never true Do you have trouble paying for medicines?: No Do you have trouble getting transportation to medical appointments?: No Do you have trouble paying your heating and electricity bill?: No Do you have trouble taking care of your child, family member or friend?: No Do you have trouble with day-to-day activities such as bathing, preparing meals, shopping, managing finances, etc.?: No Are you currently unemployed and looking for a job?: No Are you interested in more education?: No Please select the resources that you would like help with: None Currently or been in a relationship where the following occur: I choose not to answer THRIVE Score: 0 AUDIT C Alcohol Use Questionnaire (AUDIT-C) 1. How often do you have a drink containing alcohol?: Never Total Score: 0 [place]-7 AMB Questionnaire AR[place]-7 Date AR[place] - 7 assessed: 10/28/24 Feeling nervous, anxious, or on edge: 0 = Not at all Not being able to stop or control worryin = Not at all Worrying too much about different things: 3 = Nearly every day Trouble relaxin = Not at all Being so restless that it is hard to sit still: 0 = Not at all Becoming easily annoyed or irritable: 0 = Not at all Feeling afraid as if something awful might happen: 1 = Several days Total [place]-7 score (0-4 normal; 5-9 mild; 10-14 moderate; 15-21 severe): 4 Source: Developed by Drs. Mo Barbosa, Francisca Tyler, David Parker and colleagues, with an educational diane from [employer]. Review of Systems Const Denies body aches, Denies chills, Denies fever(s), Denies headache(s) and Denies poor appetite Eyes Reports no additional complaints ENT Denies dysphagia, Denies dizziness, Denies headache(s) and Denies odynophagia Card Denies chest pain, Denies syncope, Denies edema, Denies irregular heart rhythm, Denies lightheadedness and Denies dyspnea Resp Denies cough and Denies dyspnea GI Denies abdominal pain, Reports hematochezia (small amount intermittently associated with hemorroids), Reports constipation, Denies dysphagia, Denies diarrhea, Denies nausea, Denies odynophagia and Denies vomiting Reports no additional complaints Musc Reports no additional complaints and Denies abnormal gait Skin/Breast Reports system reviewed and no additional complaints, except as documented Neuro Denies abnormal gait, Denies dizziness, Denies syncope and Denies headache(s) Psych Reports no additional complaints Physical exam (Primary Care) Vital Signs: Last Vital Signs Temp 97.3 F 12/20/24 09:20 Pulse 78 12/20/24 09:20 Resp 18 12/20/24 09:20 BP 130/70 12/20/24 09:20 Pulse Ox 96 12/20/24 09:20 Oxygen Delivery Method Room Air 12/20/24 09:20 BMI result Body Mass Index 29.6 Tobacco/Smoking Status: Tobacco use Status Tobacco use date assessed 12/20/24 12/20/24 09:27 Patient Tobacco Use Status Never used Tobacco 12/20/24 09:27 Tobacco use type Cigarette 12/20/24 09:27 e-Cigarette/Vaping Use Never Used 12/20/24 09:27 PHQ-9: PHQ-9 Score PHQ-9: Total score 3 12/20/24 09:46 Thrive Assessment: Date of Thrive Assessment Date Thrive assessed 10/28/24 12/20/24 09:27 Currently or been in a relationship where the following occur: I choose not to answer Const General: cooperative, healthy appearing, comfortable and no acute distress Orientation/consciousness: patient oriented x3 HENMT Head: Yes normocephalic Ears: hearing grossly normal bilaterally General nose exam: Normal external nose present Eyes General: appearance normal, both eyes and all related structures Conjunctivae: conjunctivae normal Neck Neck: Yes full ROM and Yes no lymphadenopathy Resp Effort & Inspection: normal respiratory effort Auscultation: clear to auscultation bilaterally, no crackles, no rales, no rhonchi and no wheezes Cardio Rate: regular rate Rhythm: regular rhythm Heart sounds: S1 normal heart sound present and S2 normal heart sound present General: Yes no CVA tenderness Back/Spine/Pelvis Back: no CVA tenderness Skin General skin exam: no rashes or lesions noted Neuro General: patient oriented x3 Gait exam (Neuro): Normal gait present Extrem General: Yes normal to inspection, Yes full ROM and No edema Psych Affect: normal affect Attitude: cooperative Insight: Good insight present (Psych) Judgement: Good judgement present (Psych) Results Reviewed Results Reviewed: Laboratory Tests 10/28/24 10/28/24 09:52 10:21 WBC 7.5 RBC 5.41 Hgb 15.0 Hct 44.7 MCV 82.6 MCH 27.7 MCHC 33.6 RDW 13.1 Plt Count 260 Sodium 143 Potassium 3.9 Chloride 107 Carbon Dioxide 26 Anion Gap 14 BUN 17 H Creatinine 0.86 Estimated GFR > 60 Fasting Glucose 87 Estimat Average Glucose 120 Hemoglobin A1c % 5.8 Uric Acid 8.2 H Calcium 9.5 Ferritin 165 Total Bilirubin 1.0 AST 32 H ALT 52 H Alkaline Phosphatase 83 C-React Prot High Sens 4.5 H Total Protein 7.7 Albumin 4.9 Triglycerides 121 Cholesterol 210 H LDL Cholesterol, Calc 138 H HDL Cholesterol 48 Vitamin B12 290 25-OH Vitamin D Total 53.7 Folate 12.2 TSH 1.88 Urine Color Yellow Urine Appearance Clear Urine pH 6.5 Ur Specific [place] 1.025 Urine Protein 30 (1+) H Urine Glucose (UA) Negative Urine Ketones Negative Urine Blood Negative Urine Nitrite Negative Ur Leukocyte Esterase Trace H Urine RBC 0-2 Urine WBC 0-5 Ur Squamous Epith Cells 0-2 Urine Bacteria None Seen Hyaline Casts 0-2 DAYO Screen NEGATIVE Coding Level of Care Code Est Pt Level 4 (51507) Diagnoses Hypertension, unspecified type I10 Hypertension type: unspecified Pure hypercholesterolemia E78.00 Hyperlipidemia type: pure hypercholesterolemia Impaired fasting blood sugar R73.01 Gastroesophageal reflux disease with esophagitis without hemorrhage K21.00 Esophagitis presence: with esophagitis Esophagitis bleeding: without hemorrhage Elevated LFTs R79.89 Generalized body aches R52 Fatty liver K76.0 Obesity (BMI 30.0-34.9) E66.811 Constipation, unspecified constipation type K59.00 Constipation type: unspecified constipation type Asymptomatic hyperuricemia E79.0 Time Spent (min) 37 Assessment & Plan Assessment & Plan (1) Hypertension: Code(s): I10 - Essential (primary) hypertension Category: Medical Qualifiers: Hypertension type: unspecified Qualified Code(s): I10 - Essential (primary) hypertension Plan: Blood pressure 130/70 -goal systolic 130 mm Hg or less Reinforced low-salt diet Continue hydrochlorothiazide 12.5 mg daily (2) Hyperlipidemia: Code(s): E78.5 - Hyperlipidemia, unspecified Category: Medical Qualifiers: Hyperlipidemia type: pure hypercholesterolemia Qualified Code(s): E78.00 - Pure hypercholesterolemia, unspecified Plan: The patient's LDL cholesterol is elevated at 138 mg/dL against a goal of less than 100 mg/dL, contributing to a total cholesterol of 210 mg/dL. Plan is to continue current cholesterol medication, with the patient advised she can take it at lunchtime rather than at night. Dietary counseling was provided, emphasizing reduction of fried foods, pork, red meat, and egg yolks, and she will be given a list of high-cholesterol foods. Encouraged increasing intake of omega-3s to raise HDL. Labs will be repeated in three months for monitoring. (3) Impaired fasting blood sugar: Code(s): R73.01 - Impaired fasting glucose Category: Medical Plan: Fasting glucose has normalized to 87 Reinforced low sugar/carbohydrate diet We will continue to monitor (4) GERD (gastroesophageal reflux disease): Code(s): K21.9 - Gastro-esophageal reflux disease without esophagitis Category: Medical Qualifiers: Esophagitis presence: with esophagitis Esophagitis bleeding: without hemorrhage Qualified Code(s): K21.00 - Gastro-esophageal reflux disease with esophagitis, without bleeding Plan: Reinforced dietary restrictions Continue omeprazole 40 mg daily (5) Elevated LFTs: Code(s): R79.89 - Other specified abnormal findings of blood chemistry Category: Medical Plan: AST 32, ALT 52 The patient has mildly elevated liver enzymes secondary to known fatty liver disease, though levels have slightly improved. She was advised to cut down on fatty foods and stay active to manage the condition and prevent progression. (6) Generalized body aches: Code(s): R52 - Pain, unspecified Category: Medical (7) Fatty liver: Code(s): K76.0 - Fatty (change of) liver, not elsewhere classified Category: Medical Plan: The patient has mildly elevated liver enzymes secondary to known fatty liver disease, though levels have slightly improved. She was advised to cut down on fatty foods and stay active to manage the condition and prevent progression. (8) Obesity (BMI 30.0-34.9): Code(s): E66.811 - Obesity, class 1 Category: Medical Plan: Encouraged to exercise for at least 30 minutes a day/5 days a week Healthy eating discussed. Encouraged to eat fruits/vegetables, protein-fish/baked chicken, and to avoid salty/fried foods, sweets, caffeine and carbohydrates. Encouraged to increase water intake 6-8 glasses a day (9) Constipation: Code(s): K59.00 - Constipation, unspecified Category: Medical Qualifiers: Constipation type: unspecified constipation type Qualified Code(s): K59.00 - Constipation, unspecified Plan: The patient reports constipation and associated rectal bleeding, likely from hemorrhoids. She was advised to increase water intake and prescribed MiraLax, one capful daily, to maintain regular bowel movements. A referral will be sent to Gastroenterology for a colonoscopy for further evaluation and a screening. (10) Asymptomatic hyperuricemia: Code(s): E79.0 - Hyperuricemia without signs of inflammatory arthritis and tophaceous disease Category: Medical Plan: The patient has a slightly elevated uric acid level, which may be a side effect of a current medication. She does not exhibit symptoms of gout, and her reported arm pain is considered unrelated. The plan is to monitor without specific intervention at this time. Plan Orders: Orders Lipid Panel 3 Months E78.00 - Pure hypercholesterolemia, unspecified, I10 - Essential (primary) hypertension, K21.00 - Gastro-esophageal reflux disease with esophagitis, without bleeding, K76.0 - Fatty (change of) liver, not elsewhere classified TSH reflex Free T4 3 Months E78.00 - Pure hypercholesterolemia, unspecified, I10 - Essential (primary) hypertension, K21.00 - Gastro-esophageal reflux disease with esophagitis, without bleeding, K76.0 - Fatty (change of) liver, not elsewhere classified Comprehensive [place]. Panel Fast 3 Months E78.00 - Pure hypercholesterolemia, unspecified, I10 - Essential (primary) hypertension, K21.00 - Gastro-esophageal reflux disease with esophagitis, without bleeding, K76.0 - Fatty (change of) liver, not elsewhere classified UA CC w/rflx Micro + Cult 3 Months E78.00 - Pure hypercholesterolemia, unspecified, I10 - Essential (primary) hypertension, K21.00 - Gastro-esophageal reflux disease with esophagitis, without bleeding, K76.0 - Fatty (change of) liver, not elsewhere classified Referrals Gastroenterology Referral K64.9 - Unspecified hemorrhoids, Z12.11 - Encounter for screening for malignant neoplasm of colon, Z12.12 - Encounter for screening for malignant neoplasm of rectum Medications: New polyethylene glycol 3350 (Miralax) 17 grams PO DAILY 238 grams 3RF
--- OUTSIDE RECORDS SUMMARY | 2024-12-20 09:45 | XMS_ITS | Patient Health Record ---
Author Organization [facility] Address [address] [place] [id number] Care Team Providers Care Processing Manager Name Role Phone Burak Daigle MD Primary Care Provider Mo Lynn [phone] Reason For Referral No Information Encounters Encounter Location Date Provider Diagnosis [facility] [address] [place] [id number] 03/08/2024 Mo Jean Plan Of Treatment No Information Insurance Providers Payer Name Payer Address Payer Phone Subscriber Number Group Number Insured Name Patient Relationship to Insured Coverage Start Date Coverage End Date [facility] [address] [address] [place], [place] [id number] CLAY PALM Self - patient is the insured
== END 2024-12-20 09:50 | disposition home or self-care (01) ==
LOC: HO.HMCH 08:55
DX: I10 Essential (primary) hypertension (principal); E78.00 Pure hypercholesterolemia, unspecified; R73.01 Impaired fasting glucose; K21.00 Gastro-esophageal reflux disease with esophagitis, without bleeding; R79.89 Other specified abnormal findings of blood chemistry; R52 Pain, unspecified; K76.0 Fatty (change of) liver, not elsewhere classified; E66.811 Obesity, class 1; K59.00 Constipation, unspecified; E79.0 Hyperuricemia without signs of inflammatory arthritis and tophaceous disease

== ENCOUNTER → 2024-12-20 08:54 | Outpatient (BNVA) | payer OTHER, SELFPAY | DX: K76.0 Fatty (change of) liver, not elsewhere classified (principal); R74.8 Abnormal levels of other serum enzymes; K59.00 Constipation, unspecified; I10 Essential (primary) hypertension; E78.00 Pure hypercholesterolemia, unspecified; R73.01 Impaired fasting glucose; K21.00 Gastro-esophageal reflux disease with esophagitis, without bleeding; E66.811 Obesity, class 1; E79.0 Hyperuricemia without signs of inflammatory arthritis and tophaceous disease; Z68.29 Body mass index [BMI] 29.0-29.9, adult; Z79.899 Other long term (current) drug therapy | CPT/HCPCS: 99212 ==